=== PATIENT | male | born 1965 | race Caucasian/White ===

== ENCOUNTER 2018-02-12 07:31 | Inpatient (IN) | payer OTHER ==
--- NOTE | 2018-04-03 14:52 | HP ---
HISTORY OF PRESENT ILLNESS This is a 52 with HLD and HIV (on complare) see doctor Dr. Maki. Three months ago reports undetectable viral load. (Family is not aware of dx) next appt next month. 7 years ago pt lifted a 80lb box and injured his back. He underwent lumbar decompression back surgery at [facility]. His pain never improved since his surgery. He has tried PT and steroid injections, nerve stimulation without improvement. Pain mgmt doctor Dr. Matthew Nguyen He will undergo a posterior lumbar interbody fusion L1-S1 inspection fusion He has pain when he moves, ambulates. He ambulates with walker Has mild constipation due to narcotics PCP: Dr. Maki Recent travel: no Family History: Social History: disability[place] Smoking: no Alcohol: no Drugs: no REVIEW OF SYSTEMS CONSTITUTIONAL: Absent: fever, chills, diaphoresis, generalized weakness, malaise, loss of appetite, weight change HEENT: Absent: rhinorrhea, nasal congestion, throat pain, throat swelling, difficulty swallowing, mouth swelling, ear pain, eye pain, visual changes CARDIOVASCULAR: Absent: chest pain, syncope, palpitations, irregular heart rate, lightheadedness , peripheral edema RESPIRATORY: Absent: cough, shortness of breath, dyspnea with exertion, orthopnea, wheezing, stridor, hemoptysis GASTROINTESTINAL: Absent: abdominal pain, abdominal distension, nausea, vomiting, diarrhea, constipation, melena, hematochezia GENITOURINARY: Absent: dysuria, frequency, urgency, hesitancy, hematuria, flank pain, genital pain MUSCULOSKELETAL: back pain, Left leg pain > R Absent: myalgia, arthralgia, joint swelling, neck pain SKIN: Absent: rash, itching, pallor HEMATOLOGIC/IMMUNOLOGIC: Absent: easy bleeding, easy bruising, lymphadenopathy, frequent infections ENDOCRINE: Absent: unexplained weight gain, unexplained weight loss, heat intolerance, cold intolerance NEUROLOGIC: Absent: headache, focal weakness or paresthesias, dizziness, unsteady gait, seizure, mental status changes, bladder or bowel incontinence PSYCHIATRIC: Absent: anxiety, depression, suicidal or homicidal ideation, hallucinations. PHYSICAL EXAMINATION: GENERAL: Awake, alert, and fully oriented, in no acute distress. HEAD: Normal with no signs of trauma. EYES: Pupils equal, round and reactive to light, extraocular movements intact, sclera anicteric, conjunctiva clear. No lid lag. EARS, NOSE, THROAT: Ears normal, nares patent, oropharynx clear without exudates. Moist mucous membranes. NECK: Normal range of motion, supple without lymphadenopathy, JVD, or masses. LUNGS: Breath sounds equal, clear to auscultation bilaterally. No wheezes, and no crackles. No accessory muscle use. HEART: Regular rate and rhythm, normal S1 and S2 without murmur, rub or gallop. ABDOMEN: Soft, nontender, not distended, normoactive bowel sounds, no guarding, no rebound, no masses. No hepatomegaly or splenomegaly. MUSCULOSKELETAL: Normal range of motion at all joints. No bony deformities or tenderness. No CVA tenderness. UPPER EXTREMITIES: 2+ pulses, warm, well-perfused. No cyanosis. No clubbing. No peripheral edema. LOWER EXTREMITIES: 2+ pulses, warm, well-perfused. No calf tenderness. No peripheral edema. NEUROLOGICAL: Cranial nerves II-XII intact. Normal speech. Normal gait. PSYCHIATRIC: Cooperative. Good eye contact. Appropriate mood and affect. SKIN: Warm, dry, normal turgor, no rashes or lesions noted, normal capillary refill. ASSESSMENT/PLAN: 1. Chronic low back pain , spinal lumbar stenosis L1-S1 - For Posterior lumbar interbody fusion 04/09/18 - Cleared by pmh and gi MD - EKG no ischemia NSR - lab reviewed 2. HIV - See HPI - Cont current meds
[2018-04-09] MEDS ORDERED: fentaNYL CITRATE 250 MCG/5 ML VIAL ONE ×2 (13:39)
[2018-04-09] MEDS ORDERED: SUCCINYLCHOLINE CHLORIDE 200 MG/10 ML VIAL ONE (13:39)
[2018-04-09] MEDS ORDERED: MIDAZOLAM HCL 2 MG/2 ML SINGLE DOSE VIAL ONE ×3 (13:39)
[2018-04-09] MEDS ORDERED: PROPOFOL 20 ML ONE ×15 (13:39→18:27)
[2018-04-09] MEDS ORDERED: THROMBIN (BOVINE) 5,000 UNIT VIAL TP ONE (13:44)
[2018-04-09] MEDS ORDERED: BENZOIN/ALOE VERA/STORAX/TOLU 58 ML BOTTLE ONE (13:56)
[2018-04-09] MEDS ORDERED: HEPARIN NA (PORCINE) 5,000 UNITS/ML 1ML VIAL ONE (13:56)
[2018-04-09] MEDS ORDERED: ONDANSETRON 4 MG/2 ML VIAL ONE ×2 (14:27→19:10)
[2018-04-09] MEDS ORDERED: DEXAMETHASONE SOD PHOSPHATE 4 MG/1 ML VIAL ONE ×2 (14:27→19:10)
[2018-04-09] MEDS ORDERED: ceFAZolin SODIUM 1 GM VIAL ONE ×2 (14:28→17:50)
[2018-04-09] MEDS ORDERED: VANCOMYCIN 1,000 MG VIAL (RESTRICTED TO ID ONLY) ONE (14:28)
[2018-04-09] MEDS ORDERED: VANCOMYCIN 1,000 MG VIAL (RESTRICTED TO ID ONLY) IVPB ONE (14:30)
[2018-04-09] MEDS ORDERED: ceFAZolin SODIUM 1 GM VIAL IVPB ONE ×2 (15:36→17:52)
[2018-04-09] MEDS ORDERED: ROCURONIUM BROMIDE 50 MG/5 ML VIAL ONE (15:38)
[2018-04-09] MEDS ORDERED: ePHEDrine SULFATE 50 MG/1 ML AMPULE ONE (17:31)
--- NOTE | 2018-04-09 19:26 | PN ---
Progress Note (short form) - Note Progress Note: 52M s/p L2-L5 laminectomies, L4-L5 PLIF, L2-S1 PISF POD #0. -Pain control: per anaesthesia team. -DVT PPx: - Mechanical only: CHAZ's, SCD's. -Incentive spirometry. -PT/OT/Rehab, OOB. -WBAT B/L LE. -q4h B/L LE NV checks. -Post-op antibiotics x 2 doses. -NPO until flatus. -f/u AM labs. -d/c Castellanos catheter when ambulating. -Care per medical hospitalist team. -Discharge planning. -Will follow. Kem Feliz MD (Orthopaedic Surgery).
--- NOTE | 2018-04-09 19:26 | OP ---
Operative Note - Note: Operative Date: 04/09/18 Pre-Operative Diagnosis: Lumbar discogenic radiculopathy Operation: 1. L2-L5 laminectomies. 2. L2-L5 facetectomies. 3. L4-L5 PLIF. 4. L2-S1 PISF. 5. Stem cell harvest. 6. Bone autograft. 7. Bone allograft Post-Operative Diagnosis: Same as Pre-op Surgeon: Kem Feliz Pipe Line Inspector: Jalen Feliz Anesthesiologist/EQUINE INTERN: Lisa Conner Anesthesia: General Specimens Removed: L4-L5 disc Estimated Blood Loss (mls): 600 Drains & Tubes with Location: 1 x superficial HemoVac Blood Volume Replaced (mls): 250 (Cell Saver) Fluid Volume Replaced (mls): 2,000 (Crystalloid) Operative Report Dictated: Yes
[2018-04-09] MEDS ORDERED: ONDANSETRON 4 MG/2 ML VIAL IVPUSH PRN (19:29)
[2018-04-09] MEDS ORDERED: HYDROmorphone *PCA* 10MG/50ML DISP.SYRIN PCA ONE (19:41)
[2018-04-09] MEDS ORDERED: LACTATED RINGERS SOLUTION 1,000 ML IV SCH (19:45)
[2018-04-09] MEDS: HYDROmorphone *PCA* 10MG/50ML DISP.SYRIN PCA SCH (19:45)
[2018-04-09] MEDS ORDERED: ACETAMINOPHEN INJECTION 100 ML IVPB ONE (19:54)
[2018-04-09] MEDS: ACETAMINOPHEN 1000 MG/100 ML VIAL (NON FORMULARY) IVPB SCH (20:00)
[2018-04-09] MEDS ORDERED: LORazepam 2 MG/ML SDV VIAL IVPUSH ONE (20:41)
[2018-04-09] MEDS ORDERED: LORazepam 2 MG/ML SDV VIAL ONE (20:41)
[2018-04-09] MEDS ORDERED: HYDROmorphone HCL CARPU-JECT 2 MG/1 ML DISP.SYRIN IVPUSH ONE (20:42)
[2018-04-09] MEDS: LACTATED RINGERS SOLUTION 1,000 ML IV SCH (20:45)
--- NOTE | 2018-04-09 22:15 | CONSULT ---
Consultation: REQUESTING PROVIDER: CONSULT REQUEST: We have been asked to medically evaluate this patient for ( intensive care). HISTORY OF PRESENT ILLNESS: 52 y/o male with pmh of lumbar rediculopathy was admitted by spine surgeon for surgery. Isaiah states that 7 years ago he lifted a 80lb box and injured his back. He underwent lumbar decompression back surgery at [facility]. His pain never improved since his surgery. He has tried PT and steroid injections, nerve stimulation without improvement. Pain mgmt doctor Dr. Matthew Nguyen. He has pain when he moves, ambulates. He ambulates with walker. Has constipation due to narcotics. s/p L2-L5 laminectomies, L4-L5 PLIF, L2-S1 PISf complains of back pain radiating to left leg. on centerless grinder operator pump for pain control. on gabapentin for pain control PMH: HIV, hld REVIEW OF SYSTEMS: CONSTITUTIONAL: Absent: fever, chills, diaphoresis, generalized weakness, malaise, loss of appetite, weight change CARDIOVASCULAR: Absent: chest pain, syncope, palpitations, irregular heart rate, lightheadedness , peripheral edema RESPIRATORY: Absent: cough, shortness of breath, dyspnea with exertion, orthopnea, wheezing, stridor, hemoptysis GASTROINTESTINAL: Absent: abdominal pain, abdominal distension, nausea, vomiting, diarrhea, constipation, melena, hematochezia GENITOURINARY: Absent: dysuria, frequency, urgency, hesitancy, hematuria, flank pain, genital pain ENDOCRINE: Absent: unexplained weight gain, unexplained weight loss, heat in Absent: headache, focal weakness or paresthesias, PSYCHIATRIC: Absent: anxiety, depression, PHYSICAL EXAMINATION Vital Signs - 24 hr 04/09/18 04/09/18 04/09/18 10:23 19:30 19:45 Temperature 98.0 F 98.7 F Pulse Rate 73 103 H 104 H Respiratory 18 18 20 Rate Blood Pressure 138/84 98/59 131/79 O2 Sat by Pulse 96 95 Oximetry (%) 04/09/18 04/09/18 04/09/18 20:00 20:15 20:30 Temperature Pulse Rate 102 H 101 H 102 H Respiratory 20 18 22 Rate Blood Pressure 104/54 94/57 118/67 O2 Sat by Pulse 96 92 L 95 Oximetry (%) 04/09/18 04/09/18 20:45 20:59 Temperature Pulse Rate 102 H 103 H Respiratory 20 20 Rate Blood Pressure 118/67 137/82 O2 Sat by Pulse 92 L 97 Oximetry (%) GENERAL: Awake, alert, HEAD: Normal with no signs of trauma. EARS, NOSE, THROAT:. Moist mucous membranes. LUNGS: Breath sounds equal, clear to auscultation bilaterally. No wheezes, and no crackles. No accessory muscle use. HEART: s1s2 normal ABDOMEN: Soft, nontender, not distended, normoactive bowel sounds, no guarding, no rebound, no masses. MUSCULOSKELETAL: Normal range of motion at all joints. No bony deformities or tenderness. UPPER EXTREMITIES: 2+ pulses, warm, well-perfused. No cyanosis. LOWER EXTREMITIES: warm, well-perfused. No calf tenderness. SKIN: Warm, dry, Laboratory Results - last 24 hr 04/09/18 04/09/18 09:04 11:42 Blood Type A POSITIVE A POSITIVE Antibody Screen Negative Active Medications Generic Name Dose Route Start Last Admin Trade Name Freq PRN Reason Stop Dose Admin Acetaminophen 1,000 mg 04/09/18 19:45 04/09/18 20:00 Ofirmev Injection - IVPB 04/11/18 11:46 1,000 mg Q8H MARINO Administration Emtricitabine/Rilpivirine/Tenofovir 1 each 04/10/18 10:00 Complera - PO DAILY MARINO Fentanyl 50 mcg 04/09/18 19:43 04/09/18 20:20 Sublimaze Injection - IVPUSH 04/10/18 03:00 50 mcg [id number] PRN Administration PAIN-PACU ORDER X 4 DOSES ONLY Gabapentin 300 mg 04/09/18 22:00 Neurontin - PO QID MARINO Hydromorphone HCl 10 mg 04/09/18 20:00 04/09/18 19:45 Dilaudid Entry Level Paralegal - MANTEL CRAFTSMAN 04/16/18 19:59 10 mg MANTEL CRAFTSMAN MARINO Administration Protocol Hydromorphone HCl 2 mg 04/09/18 20:42 Dilaudid Injection - IVPUSH 04/09/18 20:43 ONCE ONE Lactated Ringer's 1,000 mls @ 75 mls/hr 04/09/18 20:00 Lactated Ringers Solution IV ASDIR MARINO Cefazolin Sodium/Dextrose 2 gm in 50 mls @ 100 mls/hr 04/10/18 00:30 Ancef 2 Gm Premixed Ivpb - IVPB 04/10/18 08:59 Q8H MARINO Ondansetron HCl 4 mg 04/09/18 19:29 Zofran Injection IVPUSH Q6H PRN NAUSEA AND/OR VOMITING ASSESSMENT/PLAN: Lumbar rediculopathy S/p L2-L5 laminectomies, L4-L5 PLIF, L2-S1 PISF POD #0. HLD HIV Plan -Pain control:on centerless grinder operator pump. -Incentive spirometry. -PT/OT/Rehab, OOB. -Post-op antibiotics as per surgeon. -NPO until flatus. -f/u AM labs. -d/c Castellanos catheter when ambulating. - continue home HIV meds. - LR @ 75ml/hr - monitor drain output. - zofran for nausea. - b/l scd for dvt prophylaxis. . Visit type - Emergency Visit Emergency Visit: Yes ED Registration Date: 04/09/18 Care time: The patient presented to the Emergency Department on the above date and was hospitalized for further evaluation of their emergent condition. - New Patient This patient is new to me today: Yes Date on this admission: 04/09/18 - Critical Care Critical Care patient: Yes Total Critical Care Time (in minutes): 45 Critical Care Statement: The care of this patient involved high complexity decision making to prevent further life threatening deterioration of the patient 's condition and/or to evaluate & treat vital organ system(s) failure or risk of failure.
[2018-04-09] MEDS: GABAPENTIN 300 MG CAPSULE (FP) PO SCH (23:10)
[2018-04-09] MEDS: CEFAZOLIN 2 GM/D5W 2 GM/50 ML ML IVPB SCH (23:51)
[2018-04-10] MEDS ORDERED: ceFAZolin 2 GRAM PREMIX BAG IVPB SCH (00:30)
[2018-04-10] MEDS ORDERED: HYDROmorphone *PCA* 10MG/50ML DISP.SYRIN PCA ONE ×2 (02:01→21:20)
[2018-04-10] MEDS: HYDROmorphone *PCA* 10MG/50ML DISP.SYRIN PCA SCH ×2 (02:03→21:25)
[2018-04-10] MEDS: ACETAMINOPHEN 1000 MG/100 ML VIAL (NON FORMULARY) IVPB SCH ×3 (05:00→22:16)
[2018-04-10] MEDS ORDERED: PNEUMOC 13-VAL CONJ-DIP CRM/PF 0.5 ML DISP.SYRIN IM ONE (06:12)
[2018-04-10 06:26] LABS: HEMATOCRIT 31.7 % (35.4-49); HEMOGLOBIN 10.8 GM/dL (11.7-16.9); MCH 31.7 pg (25.7-33.7); MCHC 34.1 g/dl (32.0-35.9); MEAN CELL VOLUME 92.8 fl (80-96); MEAN PLT VOLUME 8.5 fl (7.5-11.1); PLATELET COUNT 216 K/MM3 (134-434); RBC 3.42 M/mm3 (4.00-5.60); RDW 13.2 % (11.9-15.9)
[2018-04-10 06:47] LABS: ANION GAP 9 (8-16); BLOOD UREA NITROGEN 12 mg/dL (7-18); CALCIUM 8.3 mg/dL (8.5-10.1); CHLORIDE 104 mmol/L (98-107); CO2 26 mmol/L (21-32); GLUCOSE,RANDOM 125 mg/dL (74-106); POTASSIUM 4.4 mmol/L (3.5-5.1); SODIUM 139 mmol/L (136-145)
[2018-04-10 06:50] LABS: CREATININE 0.8 mg/dL (0.7-1.3)
[2018-04-10] MEDS ORDERED: LORazepam 2 MG/ML SDV VIAL IVPUSH PRN (08:00)
--- NOTE | 2018-04-10 08:06 | PN ---
Progress Note, Physician Chief Complaint: Pt still having pain and using TECHNICAL INTERNSHIP frequently. Stated that anxiolytic before surgery helped with his pain. No GA complaints. - Current Medication List Current Medications: Active Medications Acetaminophen (Ofirmev Injection -) 1,000 mg IVPB Q8H [facility] Stop: 04/11/18 11:46 Last Admin: 04/10/18 05:00 Dose: 1,000 mg Emtricitabine/Rilpivirine/Tenofovir (Complera -) 1 each PO DAILY [facility] Gabapentin (Neurontin -) 300 mg PO QID [facility] Last Admin: 04/09/18 23:10 Dose: 300 mg Hydromorphone HCl (Dilaudid Button Grader -) 10 mg TECHNICAL INTERNSHIP TECHNICAL INTERNSHIP [facility]; Protocol Stop: 04/16/18 19:59 Last Admin: 04/10/18 02:03 Dose: 10 mg Lactated Ringer's (Lactated Ringers Solution) 1,000 mls @ 75 mls/hr IV ASDIR [facility] Last Admin: 04/09/18 20:45 Dose: 100 mls Cefazolin Sodium/Dextrose (Ancef 2 Gm Premixed Ivpb -) 2 gm in 50 mls @ 100 mls /hr IVPB Q8H [facility] Stop: 04/10/18 08:59 Last Admin: 04/09/18 23:51 Dose: 100 mls/hr Ondansetron HCl (Zofran Injection) 4 mg IVPUSH Q6H PRN PRN Reason: NAUSEA AND/OR VOMITING Pneumococcal Polyvalent Vaccine (Pneumovax -) 0.5 ml IM .ONCE ONE Stop: 04/10/18 10:01 - Objective Vital Signs: Vital Signs Temperature 98.6 F 04/10/18 06:00 Pulse Rate 92 H 04/10/18 07:57 Respiratory Rate 16 04/10/18 07:57 Blood Pressure 110/68 04/10/18 07:57 O2 Sat by Pulse Oximetry (%) 98 04/09/18 21:45 Constitutional: Yes: Well Nourished, No Distress, Calm Neurological: Yes: WNL, Alert, Oriented Labs: CBC, BMP 04/10/18 05:30 04/10/18 05:30 Assessment/Plan POD#1 s/p L2-S1 Laminectomy with fusion under GA with TECHNICAL INTERNSHIP. Pain to be controlled better Continue TECHNICAL INTERNSHIP, start Ativan prn to help with anxiety/pain.
[2018-04-10] MEDS: CEFAZOLIN 2 GM/D5W 2 GM/50 ML ML IVPB SCH (08:39)
--- NOTE | 2018-04-10 09:02 | OP ---
DATE OF OPERATION: 04/09/2018 SURGEON: Kem Feliz MD PHARMACY TECHNOLOGY INSTRUCTOR: Jalen Feliz MD PREOPERATIVE DIAGNOSIS: Axial skeletal back pain due to discogenic L2-L3 and L4 -L5 disc degeneration with associated segment instability and kyphosis and pseudoarthrosis. POSTOPERATIVE DIAGNOSIS: Axial skeletal back pain due to discogenic L2-L3 and L4-L5 disc degeneration with associated segment instability and kyphosis and pseudoarthrosis. OPERATION PERFORMED: 1. Laminectomy L2-S1. 2. Posterior lumbar interbody fusion L4-L5 with TETRAfuse cage. 3. Removal of hardware L5-S1 and inspection of fusion mass. This revealed a pseudoarthrosis. 4. Pedicle screw instrumentation L2-S1. 5. Posterolateral arthrodesis L2-S1. 6. Complex wound closure from 25 cm. ANESTHESIA: General. ANTIBIOTICS GIVEN: Kefzol 2 g, 1 g vancomycin preoperatively; 1 g Kefzol given intraoperatively. Copious washout throughout the procedure. The wounds were opened and closed within 4 hours. BLOOD LOSS: Approximately 700 mL; 350 mL of CellSaver given back to the patient. INDICATIONS: Patient is a Worker's Compensation case and has been treated by myself for almost 4 years. Underwent surgery in the past at L4-L5-S1 fusion. Patient deteriorated significantly following this with resultant left-sided L5-S1 radiculopathy, segmental instability, and kyphosis. PROCEDURE: Timeout was called. Skin was prepped with betadine scrub solution, wiped with alcohol, and DuraPrep applied. Neural monitoring was utilized. Bone marrow aspirate concentrate from the left posterior ileum was utilized. Midline incision opening the old wound and extending proximally and distally. Subperiosteal dissection was performed from the tip of the spinous process of L1 longitudinally to the tip of the spinous process of S2. The subperiosteal dissection performed, extensively packing the intertransverse plane with sponges. The hardware was dissected out. This was all the old previous instrumentation removed without any difficulty. The original fusion site inspected and there is a suspicious degree of micromotion noted as a pseudoarthrosis. The pedicle screws were removed. The laminectomy was a central laminectomy from L2 down to L5 performed. Following this, using osteotomes to plug the bone towards the vertebral canal, displacing the pars interarticularis and the inferior facet of each joint from L2 right down to L5 was performed on the left and right hand sides. Bone was then removed, exposing the superior facet and underlying thickened capsular structures. These were all then readily visualized and appropriately removed, thus completing a wide decompression and undercutting facetectomy. The disc from the left hand side of L4-L5 was identified. Massive epidural veins were diathermized with bipolar Bovie. An 11 -blade was used to perform an annulotomy. This was a britt-annulotomy from the left hand side. Deloris were sequentially seated up to a size 12 and shaving produced degenerative disc material. The shaver was then able to completely free all disc material, which was then retrieved using pituitary rongeurs. A serrated curette was used to palpate and remove any other soft tissue elements from the superior and inferior aspects of this appropriate interbody endplate level. The interbody space was verified with fluoroscopic x-ray. This was strongly provocatively positive disc noted and this was packed with autologous bone followed by TETRAfuse size 13 x 22 mm and 5-degree lordosis. This was packed with autologous bone graft and seated solidly into position. Verification of the cage on x-ray revealed excellent position and opening into disc space. We looked at the L2-L3 disc, but this was unsafe to perform an interbody fusion. I elected not to use a transforaminal lumbar interbody cage as the disc height was well maintained and I felt this was a simple instrumented fusion across the well-maintained disc height would suffice. If anything needs to be done in the future, I would elect to do an XLIF at L2-L3. Once this had been performed, all of the pedicle screws, which measures 7 x 14 mm were seated into the interbodies. Each screw was tested with intraoperative neural monitoring and found to well within the safe parameters except the right S1 screw, which measured 8 milliamps. The reason for this was unclear as all of the pain was on the left hand side and all we did was place a new screw except a slightly thicker screw for better bony purchase into the S1 vertebral canal and this was never a problem preoperatively. It was elected to leave this alone. The rods were contoured onto the screw heads, locked into position with the appropriate tightening device, and torqued with the torque device to finalize fixation. One cross clamp was applied. The intertransverse plane was packed with bone graft from L2-S1 right down to the sacrum and this consisted of strips of allograft and autograft, mixed with C34 bone marrow cells harvested from the left posterior ileum by Jamshidi needle; 130 mL of marrow was aspirated and spun down to the appropriate bone marrow aspirate concentrate for the bone grafting. No complications. The dura was washed and thoroughly lavaged and was noted to be completely intact. Complete decompression achieved. All foramina were wide open. Sponge count was correct. The tissues were closed as follows as a complex wound closure: Muscles with 1 Vicryl, fascia with 1 Vicryl, subcutaneous tissue 1 Vicryl, and skin with allyson. Drainage: One-eighth inch Hemovac subcutaneously x1. OVERALL COMMENT: Operation went well. No complications. MD ANUEL Person/[id number] MTDD
[2018-04-10] MEDS ORDERED: PT OWN MED DRAWER 7, Y5N ONE (09:14)
[2018-04-10] MEDS: EMTRICITAB/RILPIVIRINE/TENOFOV 1 EACH TABLET PO SCH (09:15)
[2018-04-10] MEDS: GABAPENTIN 300 MG CAPSULE (FP) PO SCH ×4 (09:15→22:17)
[2018-04-10] MEDS ORDERED: PNEUMOCOCCAL 23 VACCINE 0.5 ML VIAL IM ONE (10:00)
[2018-04-10] MEDS ORDERED: diazePAM 5 MG TABLET PO PRN (12:26)
[2018-04-10] MEDS: LACTATED RINGERS SOLUTION 1,000 ML IV SCH (12:51)
--- NOTE | 2018-04-10 13:08 | PN ---
Teaching Attending Note Name of Resident: Justice Yates ATTENDING PHYSICIAN STATEMENT I saw and evaluated the patient. I reviewed the resident's note and discussed the case with the resident. I agree with the resident's findings and plan as documented. SUBJECTIVE: Patient seen and examined in the ICU. Awake and alert. POD#1: L2-L5 laminectomies; L2-L5 facetectomies; L4-L5 PLIF; L2-S1 PISF; Stem cell harvest; Bone autograft; Bone allograft Reports frequent break through musculoskeletal pain. No CP or SOB. Intake & Output 04/07/18 04/08/18 04/09/18 04/10/18 23:59 23:59 23:59 23:59 Intake Total 2350 814 Output Total 1300 870 Balance 1050 -56 Weight 211 lb 208 lb Last Vital Signs Temp Pulse Resp BP Pulse Ox 98.6 F 88 16 105/77 98 04/10/18 09:54 04/10/18 11:00 04/10/18 11:00 04/10/18 11:00 04/09/18 21:45 Active Medications Acetaminophen (Ofirmev Injection -) 1,000 mg IVPB Q8H [facility] Stop: 04/11/18 11:46 Last Admin: 04/10/18 12:55 Dose: 1,000 mg Diazepam (Valium -) 10 mg PO Q12H PRN PRN Reason: PAIN LEVEL 6-10 Stop: 04/13/18 12:26 Emtricitabine/Rilpivirine/Tenofovir (Complera -) 1 each PO DAILY [facility] Last Admin: 04/10/18 09:15 Dose: 1 each Gabapentin (Neurontin -) 300 mg PO QID [facility] Last Admin: 04/10/18 09:15 Dose: 300 mg Hydromorphone HCl (Dilaudid Revenue Enforcement Agent -) 10 mg TREND INVESTIGATOR TREND INVESTIGATOR [facility]; Protocol Stop: 04/16/18 19:59 Last Admin: 04/10/18 02:03 Dose: 10 mg Lactated Ringer's (Lactated Ringers Solution) 1,000 mls @ 75 mls/hr IV ASDIR [facility] Last Admin: 04/10/18 12:51 Dose: 75 mls/hr Ondansetron HCl (Zofran Injection) 4 mg IVPUSH Q6H PRN PRN Reason: NAUSEA AND/OR VOMITING GENERAL: Awake, alert, mildly uncomfortable due to pain HEAD: Normal with no signs of trauma. EARS, NOSE, THROAT:. Moist mucous membranes. LUNGS: Breath sounds equal, clear to auscultation bilaterally. No wheezes, and no crackles. No accessory muscle use. HEART: S1S2, regular ABDOMEN: Soft, nontender, not distended, normoactive bowel sounds, no guarding, no rebound, no masses. MUSCULOSKELETAL: Normal range of motion at all joints. No bony deformities or tenderness. UPPER EXTREMITIES: 2+ pulses, warm, well-perfused. No cyanosis. LOWER EXTREMITIES: warm, well-perfused. No calf tenderness. SKIN: Warm, dry, Laboratory Results - last 24 hr 04/10/18 04/10/18 05:30 05:30 WBC 15.0 H RBC 3.42 L Hgb 10.8 L Hct 31.7 L MCV 92.8 MCH 31.7 MCHC 34.1 RDW 13.2 Plt Count 216 MPV 8.5 Sodium 139 Potassium 4.4 Chloride 104 Carbon Dioxide 26 Anion Gap 9 BUN 12 Creatinine 0.8 Creat Clearance w eGFR > 60 Random Glucose 125 H Calcium 8.3 L ASSESSMENT/PLAN: POD#1: L2-L5 laminectomies; L2-L5 facetectomies; L4-L5 PLIF; L2-S1 PISF; Stem cell harvest; Bone autograft; Bone allograft Lumbar rediculopathy HPL HIV Plan Pain control O2 as needed VTE prophylaxis Incentive spirometry. PT/OT/Rehab OOB Post-op antibiotics as per surgeon. NPO until flatus. D/C Castellanos catheter when ambulating. LR @ 75ml/hr Strict I & O Zofran for nausea. Dr Lawton Critical care time spent in reviewing chart, evaluating patient and formulating plan - 36 minutes.
--- NOTE | 2018-04-10 14:04 | PN ---
Physical Exam: SUBJECTIVE: Patient seen and examined today in icu. POD #1 s/p posterior lumbar interbody fusion L1-S1 inspection fusion. Castellanos removed, pt is ambulating and receiving physical therapy. Continues to have moderate back pain. OBJECTIVE: Vital Signs Temperature 98.6 F 04/10/18 09:54 Pulse Rate 88 04/10/18 11:00 Respiratory Rate 16 04/10/18 11:00 Blood Pressure 105/77 04/10/18 11:00 O2 Sat by Pulse Oximetry (%) 98 04/09/18 21:45 GENERAL: The patient is awake, alert, and fully oriented, in no acute distress. HEAD: Normal with no signs of trauma. EYES: PERRL, extraocular movements intact, sclera anicteric, conjunctiva clear. No ptosis. ENT: Ears normal, nares patent, oropharynx clear without exudates, moist mucous membranes. NECK: Trachea midline, full range of motion, supple. LUNGS: Breath sounds equal, clear to auscultation bilaterally, no wheezes, no crackles, no accessory muscle use. HEART: Regular rate and rhythm, S1, S2 without murmur, rub or gallop. ABDOMEN: Soft, nontender, nondistended, normoactive bowel sounds, no guarding, no rebound, no hepatosplenomegaly, no masses. EXTREMITIES: 2+ pulses, warm, well-perfused, no edema. NEUROLOGICAL: Cranial nerves II through XII grossly intact. Normal speech, gait not observed. PSYCH: Normal mood, normal affect. SKIN: Warm, dry, normal turgor, no rashes or lesions noted Laboratory Results - last 24 hr 04/10/18 04/10/18 05:30 05:30 WBC 15.0 H RBC 3.42 L Hgb 10.8 L Hct 31.7 L MCV 92.8 MCH 31.7 MCHC 34.1 RDW 13.2 Plt Count 216 MPV 8.5 Sodium 139 Potassium 4.4 Chloride 104 Carbon Dioxide 26 Anion Gap 9 BUN 12 Creatinine 0.8 Creat Clearance w eGFR > 60 Random Glucose 125 H Calcium 8.3 L Active Medications Generic Name Dose Route Start Last Admin Trade Name Freq PRN Reason Stop Dose Admin Acetaminophen 1,000 mg 04/09/18 19:45 04/10/18 12:55 Ofirmev Injection - IVPB 04/11/18 11:46 1,000 mg Q8H MARINO Administration Diazepam 10 mg 04/10/18 12:26 Valium - PO 04/13/18 12:26 Q12H PRN PAIN LEVEL 6-10 Emtricitabine/Rilpivirine/Tenofovir 1 each 04/10/18 10:00 04/10/18 09:15 Complera - PO 1 each DAILY MARINO Administration Gabapentin 300 mg 04/09/18 22:00 04/10/18 09:15 Neurontin - PO 300 mg QID MARINO Administration Hydromorphone HCl 10 mg 04/09/18 20:00 04/10/18 02:03 Dilaudid Rug Sample Beveler - LINKER UP 04/16/18 19:59 10 mg LINKER UP MARINO Administration Protocol Lactated Ringer's 1,000 mls @ 75 mls/hr 04/09/18 20:00 04/10/18 12:51 Lactated Ringers Solution IV 75 mls/hr ASDIR MARINO Administration Ondansetron HCl 4 mg 04/09/18 19:29 Zofran Injection IVPUSH Q6H PRN NAUSEA AND/OR VOMITING ASSESSMENT/PLAN: 1. Lumbar Radiculopathy s/p L2-L5 laminectomies, L4-L5 PLIF, L2-S1 PISF For pain: Valium 10 mg po q12H Gabapentin 300 mg po qid Ofirimiev injection 1000 mg IVPB Q8H Hydromorphone hcl 10 mg manager flight operations Incentive Spirometry Physical Therapy to aid with ambulation 2. HIV c/w HIV meds Complera (Emtricitabine, rilpivirine, tenofovir) FEN Fluids - NS @ 42 ml/hr Electrolytes -Monitor electrolytes Nutrition-Soft diet DVT Thromboembolic deterrent stockings Dispo Monitor in ICU Visit type - Emergency Visit Emergency Visit: No - New Patient This patient is new to me today: Yes Date on this admission: 04/10/18 - Critical Care Critical Care patient: Yes Total Critical Care Time (in minutes): 35 Critical Care Statement: The care of this patient involved high complexity decision making to prevent further life threatening deterioration of the patient 's condition and/or to evaluate & treat vital organ system(s) failure or risk of failure.
--- NOTE | 2018-04-10 17:34 | PN ---
Progress Note (short form) - Note Progress Note: Subjective: The patient was seen and examined at the bedside, he reports some pain in his back. He is pressing his INDOOR PLANT TECHNICIAN and states he has relief when pressing it. Current Medications Generic Name Dose Route Start Last Admin Trade Name Freq PRN Reason Stop Dose Admin Acetaminophen 1,000 mg 04/09/18 19:45 04/10/18 12:55 Ofirmev Injection - IVPB 04/11/18 11:46 1,000 mg Q8H MARINO Administration Diazepam 10 mg 04/10/18 12:26 Valium - PO 04/13/18 12:26 Q12H PRN PAIN LEVEL 6-10 Emtricitabine/Rilpivirine/Tenofovir 1 each 04/10/18 10:00 04/10/18 09:15 Complera - PO 1 each DAILY MARINO Administration Gabapentin 300 mg 04/09/18 22:00 04/10/18 14:08 Neurontin - PO 300 mg QID MARINO Administration Hydromorphone HCl 10 mg 04/09/18 20:00 04/10/18 02:03 Dilaudid Content Developer - INDOOR PLANT TECHNICIAN 04/16/18 19:59 10 mg INDOOR PLANT TECHNICIAN MARINO Administration Protocol Lactated Ringer's 1,000 mls @ 75 mls/hr 04/09/18 20:00 04/10/18 12:51 Lactated Ringers Solution IV 75 mls/hr ASDIR MARINO Administration Sodium Chloride 1,000 mls @ 42 mls/hr 04/10/18 15:45 Normal Saline - IV ASDIR MARINO Ondansetron HCl 4 mg 04/09/18 19:29 Zofran Injection IVPUSH Q6H PRN NAUSEA AND/OR VOMITING Objective: Vital Signs Period Temp Pulse Resp BP Sys/Encinas Pulse Ox Last 24 Hr 98 F-98.7 F 85-117 12-22 94-139/51-94 92-99 Physical Exam: General: NAD, A&Ox3 Lungs: CTA bilaterally Heart: RRR, S1S2 Abd: Soft, non-tender, non-distended Skin: Back dressing, c/d/i Neuro: No focal deficits CBCD WBC 15.0 K/mm3 (4.0-10.0) H 04/10/18 05:30 RBC 3.42 M/mm3 (4.00-5.60) L 04/10/18 05:30 Hgb 10.8 GM/dL (11.7-16.9) L 04/10/18 05:30 Hct 31.7 % (35.4-49) L 04/10/18 05:30 MCV 92.8 fl (80-96) 04/10/18 05:30 MCHC 34.1 g/dl (32.0-35.9) 04/10/18 05:30 RDW 13.2 % (11.9-15.9) 04/10/18 05:30 Plt Count 216 K/MM3 (134-434) 04/10/18 05:30 MPV 8.5 fl (7.5-11.1) 04/10/18 05:30 CMP Sodium 139 mmol/L (136-145) 04/10/18 05:30 Potassium 4.4 mmol/L (3.5-5.1) 04/10/18 05:30 Chloride 104 mmol/L (98-107) 04/10/18 05:30 Carbon Dioxide 26 mmol/L (21-32) 04/10/18 05:30 Anion Gap 9 (8-16) 04/10/18 05:30 BUN 12 mg/dL (7-18) 04/10/18 05:30 Creatinine 0.8 mg/dL (0.7-1.3) 04/10/18 05:30 Creat Clearance w eGFR > 60 (>60) 04/10/18 05:30 Random Glucose 125 mg/dL (74-106) H 04/10/18 05:30 Calcium 8.3 mg/dL (8.5-10.1) L 04/10/18 05:30 Assessment: This is a 52 year old male with PMHx of HIV, hyperlipidemia who is s /p surgery for lumbar discogenic radiculopathy on 04/09/18 Plan: 1) Lumbar discogenic radiculopathy - S/p L2-L5 laminectomies, L2-L5 facetectomies, L4-L5 PLIF, L2-S1 PISF, Stem cell harvest, Bone autograft, Bone allograft, NGUYEN L5-S1, inspection of fusion mass - Continue INDOOR PLANT TECHNICIAN - Acetaminophen IVPB - Castellanos catheter removed today - Incentive spirometer - WBAT - Appreciate surgery consult 2) HIV - Continue Complera 3) F/E/N: - Soft diet - Monitor electrolytes 4) Prophylaxis: - Mechanical DVT prophylaxis only per surgery - PT 5) Dispo: - Requires continued inpatient care CODE STATUS: FULL CODE Visit type - Emergency Visit Emergency Visit: Yes ED Registration Date: 04/09/18 Care time: The patient presented to the Emergency Department on the above date and was hospitalized for further evaluation of their emergent condition. - New Patient This patient is new to me today: Yes Date on this admission: 04/10/18 - Critical Care Critical Care patient: No
[2018-04-10] MEDS: SODIUM CHLORIDE 1,000 ML IV SCH (17:43)
--- NOTE | 2018-04-10 19:36 | PN ---
Progress Note (short form) - Note Progress Note: POD#1 C/O incisional pain no leg pain Vitals all stable as per chart. CVS Stable RSP Clear ABD Distended soft No B/S as yet. Wound Bandage minimal drainage Drain in situ Neuro Fully in tact ASSESS Doing well PLAN D/C hemovac when drainage is less than 50 Pain Mx PT Mobile as tolerated Continue all meds Transfer to [facility] tomorrow Diet light soft
[2018-04-11] MEDS: ACETAMINOPHEN 1000 MG/100 ML VIAL (NON FORMULARY) IVPB SCH ×2 (05:43→14:12)
[2018-04-11] MEDS ORDERED: HYDROmorphone *PCA* 10MG/50ML DISP.SYRIN PCA ONE (05:54)
[2018-04-11] MEDS: HYDROmorphone *PCA* 10MG/50ML DISP.SYRIN PCA SCH ×4 (05:55→21:32)
[2018-04-11 06:09] LABS: BASO % 0.3 % (0-2.0); EOS % 1.3 % (0-4.5); HEMATOCRIT 30.2 % (35.4-49); HEMOGLOBIN 10.3 GM/dL (11.7-16.9); MCHC 34.2 g/dl (32.0-35.9); MEAN CELL VOLUME 93.3 fl (80-96); MEAN PLT VOLUME 8.1 fl (7.5-11.1); MONO % 7.7 % (3.8-10.2); NEUT % 64.7 % (42.8-82.8); PLATELET COUNT 191 K/MM3 (134-434); RBC 3.23 M/mm3 (4.00-5.60); RDW 13.7 % (11.9-15.9)
[2018-04-11 06:44] LABS: ALBUMIN 3.4 g/dl (3.4-5.0); ANION GAP 7 (8-16); BLOOD UREA NITROGEN 12 mg/dL (7-18); CALCIUM 7.8 mg/dL (8.5-10.1); CHLORIDE 102 mmol/L (98-107); CO2 32 mmol/L (21-32); GLUCOSE,RANDOM 112 mg/dL (74-106); PHOSPHOROUS 2.1 mg/dL (2.5-4.9); POTASSIUM 3.7 mmol/L (3.5-5.1); SGOT/AST 111 U/L (15-37); SODIUM 141 mmol/L (136-145)
[2018-04-11 06:46] LABS: ALK PHOS 52 U/L (45-117); BILIRUBIN,TOTAL 0.4 mg/dL (0.2-1.0); CREATININE 0.8 mg/dL (0.7-1.3); SGPT/ALT 73 U/L (12-78); TOT PROT 6.2 g/dl (6.4-8.2)
[2018-04-11] MEDS ORDERED: PT OWN MED DRAWER 7, Y5N ONE (08:36)
[2018-04-11] MEDS: EMTRICITAB/RILPIVIRINE/TENOFOV 1 EACH TABLET PO SCH ×2 (08:46→11:58)
[2018-04-11] MEDS: GABAPENTIN 300 MG CAPSULE (FP) PO SCH ×4 (09:22→21:31)
--- NOTE | 2018-04-11 09:27 | PN ---
Progress Note, Physician Chief Complaint: Pt. still has pain that is controlled with Dilaudid CLIENT SERVICES ASSOCIATE and Valium. No complications - Current Medication List Current Medications: Active Medications Acetaminophen (Ofirmev Injection -) 1,000 mg IVPB Q8H [facility] Stop: 04/11/18 14:01 Last Admin: 04/11/18 05:43 Dose: 1,000 mg Diazepam (Valium -) 10 mg PO Q12H PRN PRN Reason: PAIN LEVEL 6-10 Stop: 04/13/18 12:26 Last Admin: 04/10/18 17:39 Dose: 10 mg Emtricitabine/Rilpivirine/Tenofovir (Complera -) 1 each PO DAILY [facility] Last Admin: 04/11/18 08:46 Dose: 1 each Gabapentin (Neurontin -) 300 mg PO QID [facility] Last Admin: 04/11/18 09:22 Dose: 300 mg Hydromorphone HCl (Dilaudid Senior Engineering Associate -) 10 mg CLIENT SERVICES ASSOCIATE CLIENT SERVICES ASSOCIATE [facility]; Protocol Stop: 04/16/18 19:59 Last Admin: 04/11/18 05:55 Dose: 10 mg Sodium Chloride (Normal Saline -) 1,000 mls @ 42 mls/hr IV ASDIR [facility] Last Admin: 04/10/18 17:43 Dose: 42 mls/hr Ondansetron HCl (Zofran Injection) 4 mg IVPUSH Q6H PRN PRN Reason: NAUSEA AND/OR VOMITING - Objective Vital Signs: Vital Signs Temperature 98.2 F 04/11/18 06:00 Pulse Rate 100 H 04/11/18 08:00 Respiratory Rate 18 04/11/18 08:00 Blood Pressure 107/52 04/11/18 08:00 O2 Sat by Pulse Oximetry (%) 100 04/10/18 20:16 Constitutional: Yes: Well Nourished, No Distress, Calm Musculoskeletal: Yes: Back Pain Neurological: Yes: WNL, Alert, Oriented Labs: CBC, BMP 04/11/18 05:30 04/11/18 05:30 Assessment/Plan POD#1 s/p L2-S1 Laminectomy with fusion under GA with CLIENT SERVICES ASSOCIATE for pain control. Better with valium. Cont. CLIENT SERVICES ASSOCIATE
[2018-04-11] MEDS ORDERED: diazePAM 5 MG TABLET PO ONE (11:13)
--- NOTE | 2018-04-11 11:13 | PN ---
Physical Exam: SUBJECTIVE: Patient seen and examined at bedside. No overnight events. No new complaints. POD#1 s/p laminectomy doing well. Pain controlled. Denies CP,OSPINA, SOB , abdominal pain, nausea or vomiting. OBJECTIVE: Vital Signs Period Temp Pulse Resp BP Sys/Encinas Pulse Ox Last 24 Hr 98 F-98.8 F 86-112 16-22 107-135/52-86 100 GENERAL: Awake, alert, NAD EARS, NOSE, THROAT:. Moist mucous membranes. LUNGS: CTAB, no wheezing or rales. HEART:RRR, NL S1S2, No M/G/R ABDOMEN: soft, NT,ND, NABS MUSCULOSKELETAL: Normal range of motion at all joints. No bony deformities or tenderness. UPPER EXTREMITIES: 2+ pulses, warm, well-perfused. No cyanosis. LOWER EXTREMITIES: warm, well-perfused. No calf tenderness. no edema SKIN: surgical dressing appears C/D/I Laboratory Results - last 24 hr 04/11/18 04/11/18 05:30 05:30 WBC 12.0 H RBC 3.23 L Hgb 10.3 L Hct 30.2 L MCV 93.3 MCH 32.0 MCHC 34.2 RDW 13.7 Plt Count 191 MPV 8.1 Absolute Neuts (auto) 7.8 Neutrophils % 64.7 Lymphocytes % 26.0 Monocytes % 7.7 Eosinophils % 1.3 Basophils % 0.3 Nucleated RBC % 0 Sodium 141 Potassium 3.7 Chloride 102 Carbon Dioxide 32 D Anion Gap 7 L BUN 12 Creatinine 0.8 Creat Clearance w eGFR > 60 Random Glucose 112 H Calcium 7.8 L Phosphorus 2.1 L Magnesium 2.0 Total Bilirubin 0.4 AST 111 H ALT 73 Alkaline Phosphatase 52 Total Protein 6.2 L Albumin 3.4 Active Medications Generic Name Dose Route Start Last Admin Trade Name Freq PRN Reason Stop Dose Admin Acetaminophen 1,000 mg 04/11/18 06:00 04/11/18 05:43 Ofirmev Injection - IVPB 04/11/18 14:01 1,000 mg Q8H MARINO Administration Emtricitabine/Rilpivirine/Tenofovir 1 each 04/10/18 10:00 04/11/18 08:46 Complera - PO 1 each DAILY MARINO Administration Gabapentin 300 mg 04/09/18 22:00 04/11/18 09:22 Neurontin - PO 300 mg QID MARINO Administration Hydromorphone HCl 10 mg 04/09/18 20:00 04/11/18 05:55 Dilaudid Real Estate Professional - WELFARE SUPERVISOR 04/16/18 19:59 10 mg WELFARE SUPERVISOR MARINO Administration Protocol Sodium Chloride 1,000 mls @ 42 mls/hr 04/10/18 15:45 04/10/18 17:43 Normal Saline - IV 42 mls/hr ASDIR MARINO Administration Lorazepam 1 mg 04/11/18 10:53 Ativan - PO BID PRN Anxiety or Spasms Ondansetron HCl 4 mg 04/09/18 19:29 Zofran Injection IVPUSH Q6H PRN NAUSEA AND/OR VOMITING Oxycodone HCl 5 mg 04/11/18 10:53 Roxicodone - PO Q6H PRN PAIN LEVEL 6-10 ASSESSMENT/PLAN: 52 yo M with pmhx of HIV and HLD POD#1 s/p L2-L5 laminectomies, L4-L5 PLIF, L2- S1 PISF Neuro: * Awake and alert. * moving all 4 ext. * Sensation intact * pain control with WELFARE SUPERVISOR * surgery to remove hemovac. CV: * BP well controlled * continue to monitor Pulm : * No active issues. * encourage incentive spirometry. * supplemental o2 prn maintain SpO2 >90% ID: * h/o HIV * continue HAART FEN: * NS @ 42ml/hr * repeat BMP in AM * soft diet. Dispo: once hemovac removed can be transfered to med/surg. Visit type - Emergency Visit Emergency Visit: Yes ED Registration Date: 04/09/18 Care time: The patient presented to the Emergency Department on the above date and was hospitalized for further evaluation of their emergent condition. - New Patient This patient is new to me today: Yes Date on this admission: 04/11/18 - Critical Care Critical Care patient: Yes Total Critical Care Time (in minutes): 45 Critical Care Statement: The care of this patient involved high complexity decision making to prevent further life threatening deterioration of the patient 's condition and/or to evaluate & treat vital organ system(s) failure or risk of failure.
[2018-04-11] MEDS: oxyCODONE HCL 5 MG TABLET PO PRN ×2 (11:15→21:31)
--- NOTE | 2018-04-11 11:24 | PN ---
Teaching Attending Note Name of Resident: Luis Dockery ATTENDING PHYSICIAN STATEMENT I saw and evaluated the patient. I reviewed the resident's note and discussed the case with the resident. I agree with the resident's findings and plan as documented. SUBJECTIVE: Patient seen and examined in the ICU. Awake and alert. POD#2: L2-L5 laminectomies; L2-L5 facetectomies; L4-L5 PLIF; L2-S1 PISF; Stem cell harvest; Bone autograft; Bone allograft Intermittent break through musculoskeletal pain. No CP or SOB. Intake & Output 04/08/18 04/09/18 04/10/18 04/11/18 23:59 23:59 23:59 23:59 Intake Total 2350 1764 904 Output Total 1300 3320 2170 Balance 1050 -1556 -1266 Weight 211 lb 208 lb 207 lb Last Vital Signs Temp Pulse Resp BP Pulse Ox 98.4 F 94 H 18 122/78 100 04/11/18 10:00 04/11/18 10:00 04/11/18 10:00 04/11/18 10:00 04/10/18 20:16 Active Medications Acetaminophen (Ofirmev Injection -) 1,000 mg IVPB Q8H MARINO Stop: 04/11/18 14:01 Last Admin: 04/11/18 05:43 Dose: 1,000 mg Diazepam (Valium -) 10 mg PO ONCE ONE Stop: 04/11/18 11:14 Emtricitabine/Rilpivirine/Tenofovir (Complera -) 1 each PO DAILY MARINO Last Admin: 04/11/18 08:46 Dose: 1 each Gabapentin (Neurontin -) 300 mg PO QID MARINO Last Admin: 04/11/18 09:22 Dose: 300 mg Hydromorphone HCl (Dilaudid Entry Engineer -) 10 mg BIT SHARPENER OPERATOR BIT SHARPENER OPERATOR MARINO; Protocol Stop: 04/16/18 19:59 Last Admin: 04/11/18 05:55 Dose: 10 mg Sodium Chloride (Normal Saline -) 1,000 mls @ 42 mls/hr IV ASDIR MARINO Last Admin: 04/10/18 17:43 Dose: 42 mls/hr Lorazepam (Ativan -) 1 mg PO BID PRN PRN Reason: Anxiety or Spasms Ondansetron HCl (Zofran Injection) 4 mg IVPUSH Q6H PRN PRN Reason: NAUSEA AND/OR VOMITING Oxycodone HCl (Roxicodone -) 5 mg PO Q6H PRN PRN Reason: PAIN LEVEL 6-10 Last Admin: 04/11/18 11:15 Dose: 5 mg GENERAL: Awake, alert, mildly uncomfortable due to pain HEAD: Normal with no signs of trauma. EARS, NOSE, THROAT:. Moist mucous membranes. LUNGS: Breath sounds equal, clear to auscultation bilaterally. No wheezes, and no crackles. No accessory muscle use. HEART: S1S2, regular ABDOMEN: Soft, nontender, not distended, normoactive bowel sounds, no guarding, no rebound, no masses. MUSCULOSKELETAL: Normal range of motion at all joints. No bony deformities or tenderness. UPPER EXTREMITIES: 2+ pulses, warm, well-perfused. No cyanosis. LOWER EXTREMITIES: warm, well-perfused. No calf tenderness. SKIN: Warm, dry, Laboratory Results - last 24 hr 04/11/18 04/11/18 05:30 05:30 WBC 12.0 H RBC 3.23 L Hgb 10.3 L Hct 30.2 L MCV 93.3 MCH 32.0 MCHC 34.2 RDW 13.7 Plt Count 191 MPV 8.1 Absolute Neuts (auto) 7.8 Neutrophils % 64.7 Lymphocytes % 26.0 Monocytes % 7.7 Eosinophils % 1.3 Basophils % 0.3 Nucleated RBC % 0 Sodium 141 Potassium 3.7 Chloride 102 Carbon Dioxide 32 D Anion Gap 7 L BUN 12 Creatinine 0.8 Creat Clearance w eGFR > 60 Random Glucose 112 H Calcium 7.8 L Phosphorus 2.1 L Magnesium 2.0 Total Bilirubin 0.4 AST 111 H ALT 73 Alkaline Phosphatase 52 Total Protein 6.2 L Albumin 3.4 ASSESSMENT/PLAN: POD#2: L2-L5 laminectomies; L2-L5 facetectomies; L4-L5 PLIF; L2-S1 PISF; Stem cell harvest; Bone autograft; Bone allograft Lumbar rediculopathy HPL HIV Plan: Pain control O2 as needed VTE prophylaxis Incentive spirometry. PT/OT/Rehab OOB PO as tolerated LR @ 75ml/hr Strict I & O Zofran for nausea. Dr Lawton Critical care time spent in reviewing chart, evaluating patient and formulating plan - 36 minutes.
[2018-04-11] MEDS ORDERED: NAPH,MB-DB/K PH,MBDB POWDER PACKET PO ONE (13:21)
--- NOTE | 2018-04-11 14:00 | PN ---
Progress Note (short form) - Note Progress Note: Subjective: The patient was seen and examined at the bedside, he reports some pain in his back. Current Medications Generic Name Dose Route Start Last Admin Trade Name Daniel PRN Reason Stop Dose Admin Acetaminophen 1,000 mg 04/11/18 06:00 04/11/18 05:43 Ofirmev Injection - IVPB 04/11/18 14:01 1,000 mg Q8H MARINO Administration Diazepam 10 mg 04/11/18 11:40 Valium - PO Q12H PRN ANXIETY Emtricitabine/Rilpivirine/Tenofovir 1 each 04/10/18 10:00 04/11/18 11:58 Complera - PO Not Given DAILY MARINO Gabapentin 300 mg 04/09/18 22:00 04/11/18 13:32 Neurontin - PO 300 mg QID MARINO Administration Hydromorphone HCl 10 mg 04/09/18 20:00 04/11/18 05:55 Dilaudid Collar Shaper Operator - MASTER TECHNICIAN 04/16/18 19:59 10 mg MASTER TECHNICIAN MARINO Administration Protocol Sodium Chloride 1,000 mls @ 42 mls/hr 04/10/18 15:45 04/10/18 17:43 Normal Saline - IV 42 mls/hr ASDIR MARINO Administration Lorazepam 1 mg 04/11/18 10:53 Ativan - PO BID PRN Anxiety or Spasms Ondansetron HCl 4 mg 04/09/18 19:29 Zofran Injection IVPUSH Q6H PRN NAUSEA AND/OR VOMITING Oxycodone HCl 5 mg 04/11/18 10:53 04/11/18 11:15 Roxicodone - PO 5 mg Q6H PRN Administration PAIN LEVEL 6-10 Objective: Vital Signs Period Temp Pulse Resp BP Sys/Encinas Pulse Ox Last 24 Hr 98.2 F-98.8 F 90-112 16-22 101-135/52-78 98-100 Physical Exam: General: NAD, A&Ox3 Lungs: CTA bilaterally Heart: RRR, S1S2 Abd: Soft, non-tender, non-distended Skin: Back dressing, c/d/i Neuro: No focal deficits CBCD WBC 12.0 K/mm3 (4.0-10.0) H 04/11/18 05:30 RBC 3.23 M/mm3 (4.00-5.60) L 04/11/18 05:30 Hgb 10.3 GM/dL (11.7-16.9) L 04/11/18 05:30 Hct 30.2 % (35.4-49) L 04/11/18 05:30 MCV 93.3 fl (80-96) 04/11/18 05:30 MCHC 34.2 g/dl (32.0-35.9) 04/11/18 05:30 RDW 13.7 % (11.9-15.9) 04/11/18 05:30 Plt Count 191 K/MM3 (134-434) 04/11/18 05:30 MPV 8.1 fl (7.5-11.1) 04/11/18 05:30 CMP Sodium 141 mmol/L (136-145) 04/11/18 05:30 Potassium 3.7 mmol/L (3.5-5.1) 04/11/18 05:30 Chloride 102 mmol/L (98-107) 04/11/18 05:30 Carbon Dioxide 32 mmol/L (21-32) D 04/11/18 05:30 Anion Gap 7 (8-16) L 04/11/18 05:30 BUN 12 mg/dL (7-18) 04/11/18 05:30 Creatinine 0.8 mg/dL (0.7-1.3) 04/11/18 05:30 Creat Clearance w eGFR > 60 (>60) 04/11/18 05:30 Random Glucose 112 mg/dL (74-106) H 04/11/18 05:30 Calcium 7.8 mg/dL (8.5-10.1) L 04/11/18 05:30 Total Bilirubin 0.4 mg/dL (0.2-1.0) 04/11/18 05:30 AST 111 U/L (15-37) H 04/11/18 05:30 ALT 73 U/L (12-78) 04/11/18 05:30 Alkaline Phosphatase 52 U/L (45-117) 04/11/18 05:30 Total Protein 6.2 g/dl (6.4-8.2) L 04/11/18 05:30 Albumin 3.4 g/dl (3.4-5.0) 04/11/18 05:30 Assessment: This is a 52 year old male with PMHx of HIV, hyperlipidemia who is s /p surgery for lumbar discogenic radiculopathy on 04/09/18 Plan: 1) Lumbar discogenic radiculopathy - S/p L2-L5 laminectomies, L2-L5 facetectomies, L4-L5 PLIF, L2-S1 PISF, Stem cell harvest, Bone autograft, Bone allograft, NGUYEN L5-S1, inspection of fusion mass - Continue MASTER TECHNICIAN - Valium - Acetaminophen IVPB - Incentive spirometer - WBAT - Appreciate surgery consult 2) HIV - Continue Complera 3) F/E/N: - Soft diet - Monitor electrolytes - Hypophosphatemia: replete 4) Prophylaxis: - Mechanical DVT prophylaxis only per surgery - PT 5) Dispo: - Requires continued inpatient care CODE STATUS: FULL CODE Visit type - Emergency Visit Emergency Visit: Yes ED Registration Date: 04/09/18 Care time: The patient presented to the Emergency Department on the above date and was hospitalized for further evaluation of their emergent condition. - New Patient This patient is new to me today: No - Critical Care Critical Care patient: No
--- NOTE | 2018-04-11 15:47 | EKG ---
Test Reason : Blood Pressure : / mmHG Vent. Rate : 092 BPM Atrial Rate : 092 BPM P-R Int : 170 ms QRS Dur : 090 ms QT Int : 338 ms P-R-T Axes : 048 -54 016 degrees QTc Int : 417 ms NORMAL SINUS RHYTHM LEFT ANTERIOR FASCICULAR BLOCK CANNOT RULE OUT INFERIOR INFARCT (MASKED BY FASCICULAR BLOCK?) , AGE UNDETERMINED ABNORMAL ECG NO PREVIOUS ECGS AVAILABLE Confirmed by LYNDA SHORT, DENITA ([id number]) on 04/11/2018 3:47:14 PM Referred By: Elvin RAMEY Confirmed By:DENITA HOWELL MD
[2018-04-11] MEDS: SODIUM CHLORIDE 1,000 ML IV SCH (17:38)
[2018-04-11] MEDS: diazePAM 5 MG TABLET PO PRN (21:32)
[2018-04-11] MEDS: LORazepam 1 MG TABLET PO PRN (21:39)
[2018-04-12] MEDS: HYDROmorphone *PCA* 10MG/50ML DISP.SYRIN PCA SCH ×2 (00:22→22:20)
[2018-04-12] MEDS: oxyCODONE HCL 5 MG TABLET PO PRN ×3 (03:11→18:12)
[2018-04-12 06:10] LABS: HEMATOCRIT 30.6 % (35.4-49); HEMOGLOBIN 10.5 GM/dL (11.7-16.9); MCHC 34.3 g/dl (32.0-35.9); MEAN CELL VOLUME 93.3 fl (80-96); MEAN PLT VOLUME 8.8 fl (7.5-11.1); PLATELET COUNT 216 K/MM3 (134-434); RBC 3.28 M/mm3 (4.00-5.60); RDW 13.7 % (11.9-15.9); WHITE BLOOD COUNT 13.6 K/mm3 (4.0-10.0)
[2018-04-12 06:23] LABS: ANION GAP 8 (8-16); BLOOD UREA NITROGEN 10 mg/dL (7-18); CALCIUM 8.5 mg/dL (8.5-10.1); CHLORIDE 103 mmol/L (98-107); CO2 31 mmol/L (21-32); CREATININE 0.7 mg/dL (0.7-1.3); GLUCOSE,RANDOM 127 mg/dL (74-106); POTASSIUM 3.9 mmol/L (3.5-5.1); SODIUM 142 mmol/L (136-145)
[2018-04-12] MEDS: LORazepam 1 MG TABLET PO PRN (07:49)
[2018-04-12] MEDS: ACETAMINOPHEN 325 MG TABLET (FP) PO PRN (08:31)
--- NOTE | 2018-04-12 08:56 | PN ---
Progress Note (short form) - Note Progress Note: 52 yo Male, s/p laminectomy, Sitting up in chair looks visibly uncomfortable. Says pain is 9/10 avss plan pt is using TANK TRUCK DRIVER, says not effective at times. Ativan for adjuvant, as well as ofirmev. Pt is taking orals will add Oxycontin SR as a basal.
[2018-04-12] MEDS: oxyCODONE HCL 10 MG SUSTAINED ACTING TABLET PO SCH ×2 (09:19→21:58)
[2018-04-12] MEDS: DOCUSATE SODIUM 100 MG CAPSULE (FP) PO SCH (09:19)
[2018-04-12] MEDS: GABAPENTIN 300 MG CAPSULE (FP) PO SCH ×4 (09:19→21:58)
[2018-04-12] MEDS: POLYETHYLENE GLYCOL 3350 119 GM BTL PO SCH (10:00)
[2018-04-12] MEDS ORDERED: PT OWN MED DRAWER 7, Y5N ONE (11:16)
[2018-04-12] MEDS: EMTRICITAB/RILPIVIRINE/TENOFOV 1 EACH TABLET PO SCH (11:20)
--- NOTE | 2018-04-12 12:11 | PN ---
Teaching Attending Note Name of Resident: Justice Yates ATTENDING PHYSICIAN STATEMENT I saw and evaluated the patient. I reviewed the resident's note and discussed the case with the resident. I agree with the resident's findings and plan as documented. SUBJECTIVE: Patient seen and examined in the ICU. Awake and alert. POD#3: L2-L5 laminectomies; L2-L5 facetectomies; L4-L5 PLIF; L2-S1 PISF; Stem cell harvest; Bone autograft; Bone allograft Pain seems a little better. (+) Hiccoughs. Intake & Output 04/09/18 04/10/18 04/11/18 04/12/18 23:59 23:59 23:59 23:59 Intake Total 2350 1764 1554 554 Output Total 1300 3320 3440 380 Balance 1050 -1556 -1886 174 Weight 211 lb 208 lb 207 lb Last Vital Signs Temp Pulse Resp BP Pulse Ox 98.6 F 92 H 22 122/77 98 04/12/18 10:00 04/12/18 10:00 04/12/18 10:00 04/12/18 10:00 04/12/18 08:42 Active Medications Acetaminophen (Tylenol -) 650 mg PO Q4H PRN PRN Reason: PAIN LEVEL 1-5 Last Admin: 04/12/18 08:31 Dose: 650 mg Diazepam (Valium -) 10 mg PO Q12H PRN PRN Reason: ANXIETY Last Admin: 04/11/18 21:32 Dose: 10 mg Docusate Sodium (Colace -) 100 mg PO DAILY [facility] Last Admin: 04/12/18 09:19 Dose: 100 mg Emtricitabine/Rilpivirine/Tenofovir (Complera -) 1 each PO DAILY [facility] Last Admin: 04/12/18 11:20 Dose: 1 each Gabapentin (Neurontin -) 300 mg PO QID [facility] Last Admin: 04/12/18 09:19 Dose: 300 mg Hydromorphone HCl (Dilaudid Cellulose Insulation Helper -) 10 mg SAVINGS TELLER SAVINGS TELLER MARINO; Protocol Stop: 04/16/18 19:59 Last Admin: 04/12/18 00:22 Dose: 10 mg Sodium Chloride (Normal Saline -) 1,000 mls @ 42 mls/hr IV ASDIR [facility]INO Last Admin: 04/11/18 17:38 Dose: 42 mls/hr Lorazepam (Ativan -) 1 mg PO BID PRN PRN Reason: Anxiety or Spasms Last Admin: 04/12/18 07:49 Dose: 1 mg Ondansetron HCl (Zofran Injection) 4 mg IVPUSH Q6H PRN PRN Reason: NAUSEA AND/OR VOMITING Oxycodone HCl (Roxicodone -) 5 mg PO Q6H PRN PRN Reason: PAIN LEVEL 6-10 Last Admin: 04/12/18 07:16 Dose: 5 mg Oxycodone HCl (Oxycontin -) 10 mg PO BID [facility] Stop: 04/15/18 08:57 Last Admin: 04/12/18 09:19 Dose: 10 mg Polyethylene Glycol (Miralax (For Daily Use) -) 17 gm PO DAILY [facility] GENERAL: Awake, alert, more comfortable HEAD: Normal with no signs of trauma. EARS, NOSE, THROAT:. Moist mucous membranes. LUNGS: Breath sounds equal, clear to auscultation bilaterally. No wheezes, and no crackles. No accessory muscle use. HEART: S1S2, regular ABDOMEN: Soft, nontender, not distended, normoactive bowel sounds, no guarding, no rebound, no masses. MUSCULOSKELETAL: Normal range of motion at all joints. No bony deformities or tenderness. UPPER EXTREMITIES: 2+ pulses, warm, well-perfused. No cyanosis. LOWER EXTREMITIES: warm, well-perfused. No calf tenderness. SKIN: Warm, dry, Laboratory Results - last 24 hr 04/12/18 04/12/18 05:30 05:30 WBC 13.6 H RBC 3.28 L Hgb 10.5 L Hct 30.6 L MCV 93.3 MCH 32.0 MCHC 34.3 RDW 13.7 Plt Count 216 MPV 8.8 Sodium 142 Potassium 3.9 Chloride 103 Carbon Dioxide 31 Anion Gap 8 BUN 10 Creatinine 0.7 Creat Clearance w eGFR > 60 Random Glucose 127 H Calcium 8.5 ASSESSMENT/PLAN: POD#3: L2-L5 laminectomies; L2-L5 facetectomies; L4-L5 PLIF; L2-S1 PISF; Stem cell harvest; Bone autograft; Bone allograft Lumbar rediculopathy HPL HIV Plan: Pain control O2 as needed VTE prophylaxis Incentive spirometry. PT/OT/Rehab OOB PO as tolerated D/C drain when < 50cc output Strict I & O Zofran for nausea. Dr Lawton Critical care time spent in reviewing chart, evaluating patient and formulating plan - 36 minutes. OBJECTIVE: ASSESSMENT AND PLAN:
[2018-04-12] MEDS ORDERED: PNEUMOCOCCAL 23 VACCINE 0.5 ML VIAL IM ONE (15:01)
[2018-04-12] MEDS ORDERED: PNEUMOC 13-VAL CONJ-DIP CRM/PF 0.5 ML DISP.SYRIN IM ONE (16:00)
--- NOTE | 2018-04-12 16:51 | PN ---
Physical Exam: SUBJECTIVE: Patient seen and examined today in icu. POD 3- L2-L5 laminectomies, L4-L5 PLIF, L2-S1 PISF. Pt sitting in chair. C/o back spasms. Hemovac to be removed once drainage less than 50. Denies cp or sob. OBJECTIVE: Vital Signs Temperature 98.4 F 04/12/18 14:00 Pulse Rate 89 04/12/18 14:00 Respiratory Rate 22 04/12/18 14:00 Blood Pressure 115/63 04/12/18 14:00 O2 Sat by Pulse Oximetry (%) 98 04/12/18 08:42 GENERAL: AAOx3. Uncomfortable in bed HEAD: Normal with no signs of trauma. EYES: PERRL, extraocular movements intact, sclera anicteric, conjunctiva clear. No ptosis. ENT: Ears normal, nares patent, oropharynx clear without exudates, moist mucous membranes. NECK: Trachea midline, full range of motion, supple. LUNGS: Breath sounds equal, clear to auscultation bilaterally, no wheezes, no crackles, no accessory muscle use. HEART: Regular rate and rhythm, S1, S2 without murmur, rub or gallop. ABDOMEN: Soft, slightly tendner, distended, bowel sounds inaudible EXTREMITIES: 2+ pulses, warm, well-perfused, no edema. NEUROLOGICAL: Cn's in tact. no neuro deficits. Normal speech, gait not observed. PSYCH: Normal mood, normal affect. SKIN: Warm, dry, normal turgor, no rashes or lesions noted Laboratory Results - last 24 hr 04/12/18 04/12/18 05:30 05:30 WBC 13.6 H RBC 3.28 L Hgb 10.5 L Hct 30.6 L MCV 93.3 MCH 32.0 MCHC 34.3 RDW 13.7 Plt Count 216 MPV 8.8 Sodium 142 Potassium 3.9 Chloride 103 Carbon Dioxide 31 Anion Gap 8 BUN 10 Creatinine 0.7 Creat Clearance w eGFR > 60 Random Glucose 127 H Calcium 8.5 Active Medications Generic Name Dose Route Start Last Admin Trade Name Freq PRN Reason Stop Dose Admin Acetaminophen 650 mg 04/12/18 08:16 04/12/18 08:31 Tylenol - PO 650 mg Q4H PRN Administration PAIN LEVEL 1-5 Diazepam 10 mg 04/11/18 11:40 04/11/18 21:32 Valium - PO 10 mg Q12H PRN Administration ANXIETY Docusate Sodium 100 mg 04/12/18 10:00 04/12/18 09:19 Colace - PO 100 mg DAILY [facility] Administration Emtricitabine/Rilpivirine/Tenofovir 1 each 04/10/18 10:00 04/12/18 11:20 Complera - PO 1 each DAILY [facility] Administration Gabapentin 300 mg 04/09/18 22:00 04/12/18 15:03 Neurontin - PO 300 mg QID MARINO Administration Hydromorphone HCl 10 mg 04/09/18 20:00 04/12/18 00:22 Dilaudid Hot Roll Laminator - CURATOR 04/16/18 19:59 10 mg CURATOR MARINO Administration Protocol Sodium Chloride 1,000 mls @ 42 mls/hr 04/10/18 15:45 04/11/18 17:38 Normal Saline - IV 42 mls/hr ASDIR MARINO Administration Lorazepam 1 mg 04/11/18 10:53 04/12/18 07:49 Ativan - PO 1 mg BID PRN Administration Anxiety or Spasms Ondansetron HCl 4 mg 04/09/18 19:29 Zofran Injection IVPUSH Q6H PRN NAUSEA AND/OR VOMITING Oxycodone HCl 5 mg 04/11/18 10:53 04/12/18 07:16 Roxicodone - PO 5 mg Q6H PRN Administration PAIN LEVEL 6-10 Oxycodone HCl 10 mg 04/12/18 10:00 04/12/18 09:19 Oxycontin - PO 04/15/18 08:57 10 mg BID MARINO Administration Polyethylene Glycol 17 gm 04/12/18 10:00 04/12/18 10:00 Miralax (For Daily Use) - PO 17 g DAILY [facility] Administration ASSESSMENT/PLAN: 52 yo M with pmhx of HIV and HLD POD#1 s/p L2-L5 laminectomies, L4-L5 PLIF, L2- S1 PISF 1. Lumbar Radiculopathy s/p L2-L5 laminectomies, L4-L5 PLIF, L2-S1 PISF For pain: Ativan 1 mg po bid Valium 10 mg po q12H Gabapentin 300 mg po qid Ofirimiev injection 1000 mg IVPB Q8H Hydromorphone hcl 10 mg paper novelty maker Incentive Spirometry Physical Therapy to aid with ambulation 2. HIV c/w HIV meds Complera (Emtricitabine, rilpivirine, tenofovir) FEN Fluids - NS @ 42 ml/hr Electrolytes -Monitor electrolytes Nutrition-Soft diet Visit type - Emergency Visit Emergency Visit: No - New Patient This patient is new to me today: No - Critical Care Critical Care patient: Yes Total Critical Care Time (in minutes): 35 Critical Care Statement: The care of this patient involved high complexity decision making to prevent further life threatening deterioration of the patient 's condition and/or to evaluate & treat vital organ system(s) failure or risk of failure.
[2018-04-12] MEDS: diazePAM 5 MG TABLET PO PRN (16:53)
--- NOTE | 2018-04-12 17:43 | PN ---
Progress Note (short form) - Note Progress Note: Subjective: The patient was seen and examined sitting in the chair, he reports some pain in his back. + hiccups Current Medications Generic Name Dose Route Start Last Admin Trade Name Freq PRN Reason Stop Dose Admin Acetaminophen 650 mg 04/12/18 08:16 04/12/18 08:31 Tylenol - PO 650 mg Q4H PRN Administration PAIN LEVEL 1-5 Diazepam 10 mg 04/11/18 11:40 04/12/18 16:53 Valium - PO 10 mg Q12H PRN Administration ANXIETY Docusate Sodium 100 mg 04/12/18 10:00 04/12/18 09:19 Colace - PO 100 mg DAILY [facility] Administration Emtricitabine/Rilpivirine/Tenofovir 1 each 04/10/18 10:00 04/12/18 11:20 Complera - PO 1 each DAILY [facility] Administration Gabapentin 300 mg 04/09/18 22:00 04/12/18 15:03 Neurontin - PO 300 mg QID [facility] Administration Hydromorphone HCl 10 mg 04/09/18 20:00 04/12/18 00:22 Dilaudid Egg Buyer - CLINICAL SALES CONSULTANT 04/16/18 19:59 10 mg CLINICAL SALES CONSULTANT [facility]INO Administration Protocol Sodium Chloride 1,000 mls @ 42 mls/hr 04/10/18 15:45 04/11/18 17:38 Normal Saline - IV 42 mls/hr ASDIR MAIRNO Administration Lorazepam 1 mg 04/11/18 10:53 04/12/18 07:49 Ativan - PO 1 mg BID PRN Administration Anxiety or Spasms Ondansetron HCl 4 mg 04/09/18 19:29 Zofran Injection IVPUSH Q6H PRN NAUSEA AND/OR VOMITING Oxycodone HCl 5 mg 04/11/18 10:53 04/12/18 07:16 Roxicodone - PO 5 mg Q6H PRN Administration PAIN LEVEL 6-10 Oxycodone HCl 10 mg 04/12/18 10:00 04/12/18 09:19 Oxycontin - PO 04/15/18 08:57 10 mg BID [facility]INO Administration Polyethylene Glycol 17 gm 04/12/18 10:00 04/12/18 10:00 Miralax (For Daily Use) - PO 17 g DAILY [facility] Administration Objective: Vital Signs Period Temp Pulse Resp BP Sys/Encinas Pulse Ox Last 24 Hr 98.4 F-99.7 F 78-100 13-22 101-134/50-96 98-98 Physical Exam: General: NAD, A&Ox3 Lungs: CTA bilaterally Heart: RRR, S1S2 Abd: Soft, non-tender, non-distended Skin: Back dressing, c/d/i, drain in place Neuro: No focal deficits CBCD WBC 13.6 K/mm3 (4.0-10.0) H 04/12/18 05:30 RBC 3.28 M/mm3 (4.00-5.60) L 04/12/18 05:30 Hgb 10.5 GM/dL (11.7-16.9) L 04/12/18 05:30 Hct 30.6 % (35.4-49) L 04/12/18 05:30 MCV 93.3 fl (80-96) 04/12/18 05:30 MCHC 34.3 g/dl (32.0-35.9) 04/12/18 05:30 RDW 13.7 % (11.9-15.9) 04/12/18 05:30 Plt Count 216 K/MM3 (134-434) 04/12/18 05:30 MPV 8.8 fl (7.5-11.1) 04/12/18 05:30 CMP Sodium 142 mmol/L (136-145) 04/12/18 05:30 Potassium 3.9 mmol/L (3.5-5.1) 04/12/18 05:30 Chloride 103 mmol/L (98-107) 04/12/18 05:30 Carbon Dioxide 31 mmol/L (21-32) 04/12/18 05:30 Anion Gap 8 (8-16) 04/12/18 05:30 BUN 10 mg/dL (7-18) 04/12/18 05:30 Creatinine 0.7 mg/dL (0.7-1.3) 04/12/18 05:30 Creat Clearance w eGFR > 60 (>60) 04/12/18 05:30 Random Glucose 127 mg/dL (74-106) H 04/12/18 05:30 Calcium 8.5 mg/dL (8.5-10.1) 04/12/18 05:30 Total Bilirubin 0.4 mg/dL (0.2-1.0) 04/11/18 05:30 AST 111 U/L (15-37) H 04/11/18 05:30 ALT 73 U/L (12-78) 04/11/18 05:30 Alkaline Phosphatase 52 U/L (45-117) 04/11/18 05:30 Total Protein 6.2 g/dl (6.4-8.2) L 04/11/18 05:30 Albumin 3.4 g/dl (3.4-5.0) 04/11/18 05:30 Assessment: This is a 52 year old male with PMHx of HIV, hyperlipidemia who is s /p surgery for lumbar discogenic radiculopathy on 04/09/18 Plan: 1) Lumbar discogenic radiculopathy - S/p L2-L5 laminectomies, L2-L5 facetectomies, L4-L5 PLIF, L2-S1 PISF, Stem cell harvest, Bone autograft, Bone allograft, NGUYEN L5-S1, inspection of fusion mass - Continue CLINICAL SALES CONSULTANT - Valium - Acetaminophen IVPB - Incentive spirometer - WBAT - Appreciate surgery consult 2) HIV - Continue Complera 3) F/E/N: - Soft diet - Monitor electrolytes 4) Prophylaxis: - Mechanical DVT prophylaxis only per surgery - PT 5) Dispo: - Requires continued inpatient care CODE STATUS: FULL CODE Visit type - Emergency Visit Emergency Visit: Yes ED Registration Date: 04/09/18 Care time: The patient presented to the Emergency Department on the above date and was hospitalized for further evaluation of their emergent condition. - New Patient This patient is new to me today: No - Critical Care Critical Care patient: No
[2018-04-13] MEDS: ACETAMINOPHEN 325 MG TABLET (FP) PO PRN (03:49)
[2018-04-13 06:31] LABS: ALBUMIN 3.1 g/dl (3.4-5.0); ANION GAP 7 (8-16); BLOOD UREA NITROGEN 10 mg/dL (7-18); CALCIUM 8.6 mg/dL (8.5-10.1); CHLORIDE 104 mmol/L (98-107); CO2 29 mmol/L (21-32); GLUCOSE,RANDOM 132 mg/dL (74-106); SODIUM 140 mmol/L (136-145)
[2018-04-13 06:35] LABS: ALK PHOS 52 U/L (45-117); BILIRUBIN,TOTAL 0.5 mg/dL (0.2-1.0); CREATININE 0.7 mg/dL (0.7-1.3); SGOT/AST 91 U/L (15-37); SGPT/ALT 69 U/L (12-78); TOT PROT 6.3 g/dl (6.4-8.2)
[2018-04-13 07:21] LABS: HEMATOCRIT 30.7 % (35.4-49); HEMOGLOBIN 10.4 GM/dL (11.7-16.9); MCH 31.5 pg (25.7-33.7); MEAN CELL VOLUME 92.6 fl (80-96); MEAN PLT VOLUME 9.2 fl (7.5-11.1); PLATELET COUNT 264 K/MM3 (134-434); RBC 3.31 M/mm3 (4.00-5.60); RDW 13.4 % (11.9-15.9); WHITE BLOOD COUNT 11.6 K/mm3 (4.0-10.0)
[2018-04-13] MEDS: oxyCODONE HCL 5 MG TABLET PO PRN ×5 (08:14→19:32)
--- NOTE | 2018-04-13 09:10 | PN ---
Progress Note (short form) - Note Progress Note: Anesthesiology Pain Service 52 y.o. POD #4 s/p L2-S1 Laminectomy with fusion under GA with post-op OPERATOR LIGHTS. Pt. awake and alert, sitting in chair eating breakfast. He does c/o some pain but it does come and go. Sore throat present as well. Denies n/v. VSS. 52 y.o. man s/p lumbar spine surgery with post-op pain but stable post- operative course. Will D/C OPERATOR LIGHTS since pt. is tolerating scheduled PO oxycontin and add PRN oxycodone dosing. Encouraged PO fluid intake for sore throat. Will defer to primary team as far as need for ICU care. D/w RN to call Anesthesia if any issues with pain management.
[2018-04-13] MEDS ORDERED: PT OWN MED DRAWER 7, Y5N ONE ×2 (09:26→20:22)
[2018-04-13] MEDS: oxyCODONE HCL 10 MG SUSTAINED ACTING TABLET PO SCH ×2 (09:44→22:28)
[2018-04-13] MEDS: GABAPENTIN 300 MG CAPSULE (FP) PO SCH ×4 (09:44→22:28)
[2018-04-13] MEDS: DOCUSATE SODIUM 100 MG CAPSULE (FP) PO SCH (09:45)
[2018-04-13] MEDS: EMTRICITAB/RILPIVIRINE/TENOFOV 1 EACH TABLET PO SCH (09:45)
[2018-04-13] MEDS: POLYETHYLENE GLYCOL 3350 119 GM BTL PO SCH ×3 (09:59→22:27)
--- NOTE | 2018-04-13 12:59 | PN ---
Teaching Attending Note Name of Resident: Justice Yates ATTENDING PHYSICIAN STATEMENT I saw and evaluated the patient. I reviewed the resident's note and discussed the case with the resident. I agree with the resident's findings and plan as documented. SUBJECTIVE: Patient seen and examined in the ICU. Awake and alert. POD#4: L2-L5 laminectomies; L2-L5 facetectomies; L4-L5 PLIF; L2-S1 PISF; Stem cell harvest; Bone autograft; Bone allograft Pain seems became worse today while he was straining to defecate. No BM for several days. (+) Hiccoughs. Intake & Output 04/10/18 04/11/18 04/12/18 04/13/18 23:59 23:59 23:59 23:59 Intake Total 1764 1554 1558 620 Output Total 3320 3440 1135 1335 Balance -1556 -1886 423 -715 Weight 208 lb 207 lb Last Vital Signs Temp Pulse Resp BP Pulse Ox 98.3 F 86 18 140/83 98 04/13/18 10:00 04/13/18 12:00 04/13/18 12:00 04/13/18 12:00 04/13/18 09:00 Active Medications Acetaminophen (Tylenol -) 650 mg PO Q4H PRN PRN Reason: PAIN LEVEL 1-5 Last Admin: 04/13/18 03:49 Dose: 650 mg Chlorpromazine HCl (Thorazine -) 25 mg PO Q8H PRN PRN Reason: hiccups Diazepam (Valium -) 10 mg PO Q12H PRN PRN Reason: ANXIETY Last Admin: 04/12/18 16:53 Dose: 10 mg Docusate Sodium (Colace -) 100 mg PO DAILY [facility] Last Admin: 04/13/18 09:45 Dose: 100 mg Emtricitabine/Rilpivirine/Tenofovir (Complera -) 1 each PO DAILY [facility] Last Admin: 04/13/18 09:45 Dose: 1 each Gabapentin (Neurontin -) 300 mg PO QID [facility] Last Admin: 04/13/18 09:44 Dose: 300 mg Sodium Chloride (Normal Saline -) 1,000 mls @ 42 mls/hr IV ASDIR [facility] Last Admin: 04/11/18 17:38 Dose: 42 mls/hr Lorazepam (Ativan -) 1 mg PO BID PRN PRN Reason: Anxiety or Spasms Last Admin: 04/12/18 07:49 Dose: 1 mg Ondansetron HCl (Zofran Injection) 4 mg IVPUSH Q6H PRN PRN Reason: NAUSEA AND/OR VOMITING Oxycodone HCl (Roxicodone -) 5 mg PO Q6H PRN PRN Reason: PAIN LEVEL 6-10 Last Admin: 04/13/18 08:14 Dose: 5 mg Oxycodone HCl (Oxycontin -) 10 mg PO BID [facility] Stop: 04/15/18 08:57 Last Admin: 04/13/18 09:44 Dose: 10 mg Oxycodone HCl (Roxicodone -) 10 mg PO Q3H PRN PRN Reason: PAIN LEVEL 6-10 Last Admin: 04/13/18 11:32 Dose: 10 mg Polyethylene Glycol (Miralax (For Daily Use) -) 17 gm PO DAILY [facility] Last Admin: 04/13/18 09:59 Dose: 17 g GENERAL: Awake, alert, more comfortable HEAD: Normal with no signs of trauma. EARS, NOSE, THROAT:. Moist mucous membranes. LUNGS: Breath sounds equal, clear to auscultation bilaterally. No wheezes, and no crackles. No accessory muscle use. HEART: S1S2, regular ABDOMEN: Soft, nontender, not distended, normoactive bowel sounds, no guarding, no rebound, no masses. MUSCULOSKELETAL: Normal range of motion at all joints. No bony deformities or tenderness. UPPER EXTREMITIES: 2+ pulses, warm, well-perfused. No cyanosis. LOWER EXTREMITIES: warm, well-perfused. No calf tenderness. SKIN: Warm, dry, Laboratory Results - last 24 hr 04/13/18 04/13/18 05:30 05:30 WBC 11.6 H RBC 3.31 L Hgb 10.4 L Hct 30.7 L MCV 92.6 MCH 31.5 MCHC 34.0 RDW 13.4 Plt Count 264 D MPV 9.2 Sodium 140 Potassium 4.0 Chloride 104 Carbon Dioxide 29 Anion Gap 7 L BUN 10 Creatinine 0.7 Creat Clearance w eGFR > 60 Random Glucose 132 H Calcium 8.6 Total Bilirubin 0.5 AST 91 H ALT 69 Alkaline Phosphatase 52 Total Protein 6.3 L Albumin 3.1 L ASSESSMENT/PLAN: POD#3: L2-L5 laminectomies; L2-L5 facetectomies; L4-L5 PLIF; L2-S1 PISF; Stem cell harvest; Bone autograft; Bone allograft Lumbar rediculopathy HPL HIV Plan: Pain control O2 as needed VTE prophylaxis Incentive spirometry. PT/OT/Rehab OOB PO as tolerated D/C drain when < 50cc output Strict I & O Zofran for nausea. Vy Lawton Critical care time spent in reviewing chart, evaluating patient and formulating plan - 36 minutes.
[2018-04-13] MEDS: chlorproMAZINE HCL 25 MG TABLET PO PRN ×2 (13:12→22:30)
--- NOTE | 2018-04-13 15:40 | PN ---
Physical Exam: SUBJECTIVE: Patient seen and examined today in icu. POD 4- L2-L5 laminectomies, L4-L5 PLIF, L2-S1 PISF. C/o soar throat and hiccups. Also states he has radiating pain down his left leg. Denies cp, sob, chau, or nausea. OBJECTIVE: Vital Signs Temperature 98.3 F 04/13/18 10:00 Pulse Rate 86 04/13/18 12:00 Respiratory Rate 18 04/13/18 12:00 Blood Pressure 140/83 04/13/18 12:00 O2 Sat by Pulse Oximetry (%) 98 04/13/18 09:00 GENERAL: The patient is awake, alert, and fully oriented. Pain subsiding. HEAD: Normal with no signs of trauma. EYES: PERRL, extraocular movements intact, sclera anicteric, conjunctiva clear. No ptosis. ENT: Ears normal, nares patent, oropharynx clear without exudates, moist mucous membranes. NECK: Trachea midline, full range of motion, supple. LUNGS: Breath sounds equal, clear to auscultation bilaterally, no wheezes, no crackles, no accessory muscle use. HEART: Regular rate and rhythm, S1, S2 without murmur, rub or gallop. ABDOMEN: Soft, nontender, nondistended, normoactive bowel sounds, no guarding, no rebound, no hepatosplenomegaly, no masses. EXTREMITIES: 2+ pulses, warm, well-perfused, no edema. NEUROLOGICAL: Cranial nerves II through XII grossly intact. Normal speech, gait not observed. PSYCH: Normal mood, normal affect. SKIN: Warm, dry, normal turgor, no rashes or lesions noted Laboratory Results - last 24 hr 04/13/18 04/13/18 05:30 05:30 WBC 11.6 H RBC 3.31 L Hgb 10.4 L Hct 30.7 L MCV 92.6 MCH 31.5 MCHC 34.0 RDW 13.4 Plt Count 264 D MPV 9.2 Sodium 140 Potassium 4.0 Chloride 104 Carbon Dioxide 29 Anion Gap 7 L BUN 10 Creatinine 0.7 Creat Clearance w eGFR > 60 Random Glucose 132 H Calcium 8.6 Total Bilirubin 0.5 AST 91 H ALT 69 Alkaline Phosphatase 52 Total Protein 6.3 L Albumin 3.1 L Active Medications Generic Name Dose Route Start Last Admin Trade Name Freq PRN Reason Stop Dose Admin Acetaminophen 650 mg 04/12/18 08:16 04/13/18 03:49 Tylenol - PO 650 mg Q4H PRN Administration PAIN LEVEL 1-5 Chlorpromazine HCl 25 mg 04/13/18 12:22 04/13/18 13:12 Thorazine - PO 25 mg Q8H PRN Administration hiccups Diazepam 10 mg 04/11/18 11:40 04/12/18 16:53 Valium - PO 10 mg Q12H PRN Administration ANXIETY Docusate Sodium 100 mg 04/12/18 10:00 04/13/18 09:45 Colace - PO 100 mg DAILY YOLIS Administration Emtricitabine/Rilpivirine/Tenofovir 1 each 04/10/18 10:00 04/13/18 09:45 Complera - PO 1 each DAILY YOLIS Administration Gabapentin 300 mg 04/09/18 22:00 04/13/18 14:39 Neurontin - PO 300 mg QID YOLIS Administration Sodium Chloride 1,000 mls @ 42 mls/hr 04/10/18 15:45 04/11/18 17:38 Normal Saline - IV 42 mls/hr ASDIR YOLIS Administration Lorazepam 1 mg 04/11/18 10:53 04/12/18 07:49 Ativan - PO 1 mg BID PRN Administration Anxiety or Spasms Ondansetron HCl 4 mg 04/09/18 19:29 Zofran Injection IVPUSH Q6H PRN NAUSEA AND/OR VOMITING Oxycodone HCl 5 mg 04/11/18 10:53 04/13/18 08:14 Roxicodone - PO 5 mg Q6H PRN Administration PAIN LEVEL 6-10 Oxycodone HCl 10 mg 04/12/18 10:00 04/13/18 09:44 Oxycontin - PO 04/15/18 08:57 10 mg BID YOLIS Administration Oxycodone HCl 10 mg 04/13/18 09:03 04/13/18 14:38 Roxicodone - PO 10 mg Q3H PRN Administration PAIN LEVEL 6-10 Polyethylene Glycol 17 gm 04/12/18 10:00 04/13/18 09:59 Miralax (For Daily Use) - PO 17 g DAILY YOLIS Administration ASSESSMENT/PLAN: 1. Lumbar Radiculopathy s/p L2-L5 laminectomies, L4-L5 PLIF, L2-S1 PISF For pain: MANAGER CUSTOMER d/c as pt able to tolerate sched pain medication Valium 10 mg po q12H Gabapentin 300 mg po qid Ativan 1 mg po bid prn 10 mg po bid oxycodone yolis 10 mg po oxycodone q3h prn Tylenol 650 mg po q4h prn Incentive Spirometry Chlorpromazine for hiccup- 25 MG PO Q8H PRN Physical Therapy to aid with ambulation 2. HIV c/w HIV meds Complera (Emtricitabine, rilpivirine, tenofovir) FEN Fluids - NS 1,000 ml @ 42 nls/hr Electrolytes - monitor electrolytes Nutrition-Soft diet Visit type - Emergency Visit Emergency Visit: No - New Patient This patient is new to me today: No - Critical Care Critical Care patient: Yes Total Critical Care Time (in minutes): 35 Critical Care Statement: The care of this patient involved high complexity decision making to prevent further life threatening deterioration of the patient 's condition and/or to evaluate & treat vital organ system(s) failure or risk of failure.
[2018-04-13] MEDS ORDERED: BISACODYL 10 MG SUPP.RECT RC PRN (19:15)
[2018-04-14] MEDS: oxyCODONE HCL 5 MG TABLET PO PRN ×6 (00:14→21:18)
[2018-04-14 06:28] LABS: BASO % 0.3 % (0-2.0); EOS % 2.3 % (0-4.5); HEMATOCRIT 32.7 % (35.4-49); HEMOGLOBIN 11.3 GM/dL (11.7-16.9); LYMPH % 29.2 % (8-40); MCH 31.9 pg (25.7-33.7); MCHC 34.5 g/dl (32.0-35.9); MEAN CELL VOLUME 92.5 fl (80-96); MEAN PLT VOLUME 8.7 fl (7.5-11.1); MONO % 7.4 % (3.8-10.2); NEUT % 60.8 % (42.8-82.8); PLATELET COUNT 300 K/MM3 (134-434); RBC 3.53 M/mm3 (4.00-5.60); RDW 13.1 % (11.9-15.9); WHITE BLOOD COUNT 9.7 K/mm3 (4.0-10.0)
[2018-04-14 06:52] LABS: ALBUMIN 3.5 g/dl (3.4-5.0); ANION GAP 9 (8-16); BLOOD UREA NITROGEN 11 mg/dL (7-18); CALCIUM 8.9 mg/dL (8.5-10.1); CHLORIDE 104 mmol/L (98-107); CO2 30 mmol/L (21-32); GLUCOSE,RANDOM 129 mg/dL (74-106); MAGNESIUM 2.2 mg/dL (1.8-2.4); POTASSIUM 3.7 mmol/L (3.5-5.1); SODIUM 143 mmol/L (136-145)
[2018-04-14 06:55] LABS: ALK PHOS 61 U/L (45-117); BILIRUBIN,TOTAL 0.6 mg/dL (0.2-1.0); CREATININE 0.8 mg/dL (0.7-1.3); PHOSPHOROUS 3.8 mg/dL (2.5-4.9); SGOT/AST 92 U/L (15-37); SGPT/ALT 78 U/L (12-78); TOT PROT 6.9 g/dl (6.4-8.2)
[2018-04-14] MEDS ORDERED: PT OWN MED DRAWER 7, Y5N ONE (09:19)
[2018-04-14] MEDS: GABAPENTIN 300 MG CAPSULE (FP) PO SCH ×4 (09:22→21:20)
[2018-04-14] MEDS: oxyCODONE HCL 10 MG SUSTAINED ACTING TABLET PO SCH (09:22)
[2018-04-14] MEDS: POLYETHYLENE GLYCOL 3350 119 GM BTL PO SCH ×2 (09:23→21:20)
[2018-04-14] MEDS: EMTRICITAB/RILPIVIRINE/TENOFOV 1 EACH TABLET PO SCH (09:23)
[2018-04-14] MEDS: chlorproMAZINE HCL 25 MG TABLET PO PRN (09:26)
--- NOTE | 2018-04-14 09:27 | PN ---
Physical Exam: SUBJECTIVE: Patient seen and examined at bedside. Hiccups. Pain is well- controlled. WAXING MACHINE OPERATOR HELPER off. OBJECTIVE: Vital Signs Period Temp Pulse Resp BP Sys/Encinas Pulse Ox Last 24 Hr 97.4 F-98.3 F 86-134 18-30 119-158/68-114 98-98 GENERAL: The patient is awake, alert, and fully oriented, in no acute distress. LUNGS: Breath sounds equal, clear to auscultation bilaterally, no wheezes, no crackles, no accessory muscle use. HEART: Regular rate and rhythm, S1, S2 ABDOMEN: Soft, nontender, nondistended MUSCULOSKELETAL: Surgical dressing entire length of spine c/d/i; no surrounding erythema or edema EXTREMITIES: 2+ pulses, warm, well-perfused, no edema. NEUROLOGICAL: Cranial nerves II through XII grossly intact. Normal speech. Active Medications Generic Name Dose Route Start Trade Name Freq PRN Reason Stop Acetaminophen 650 mg 04/12/18 08:16 Tylenol - PO Q4H PRN PAIN LEVEL 1-5 Bisacodyl 10 mg 04/13/18 19:15 Dulcolax Suppository - RC PRN PRN CONSTIPATION Chlorpromazine HCl 25 mg 04/13/18 12:22 Thorazine - PO Q8H PRN hiccups Diazepam 10 mg 04/11/18 11:40 Valium - PO Q12H PRN ANXIETY Docusate Sodium 300 mg 04/13/18 22:00 Colace - PO HS [facility] Emtricitabine/Rilpivirine/Tenofovir 1 each 04/10/18 10:00 Complera - PO DAILY [facility] Gabapentin 300 mg 04/09/18 22:00 Neurontin - PO QID [facility] Lorazepam 1 mg 04/11/18 10:53 Ativan - PO BID PRN Anxiety or Spasms Ondansetron HCl 4 mg 04/09/18 19:29 Zofran Injection IVPUSH Q6H PRN NAUSEA AND/OR VOMITING Oxycodone HCl 5 mg 04/11/18 10:53 Roxicodone - PO Q6H PRN PAIN LEVEL 6-10 Oxycodone HCl 10 mg 04/12/18 10:00 Oxycontin - PO 04/15/18 08:57 BID [facility]INO Oxycodone HCl 10 mg 04/13/18 09:03 Roxicodone - PO Q3H PRN PAIN LEVEL 6-10 Polyethylene Glycol 17 gm 04/13/18 19:15 Miralax (For Daily Use) - PO BID [facility] ASSESSMENT/PLAN 52 year-old male with PMH of HIV, hyperlipidemia who is s/p surgery for lumbar discogenic radiculopathy on 04/09/18. Lumbar discogenic radiculopathy --s/p L2-L5 laminectomies, L2-L5 facetectomies, L4-L5 PLIF, L2-S1 PISF, stem cell harvest, bone autograft, bone allograft, NGUYEN L5-S1, inspection of fusion mass --WAXING MACHINE OPERATOR HELPER off; pain presently well-managed --walked to bathroom today, had BM --continue bowel regimen Hiccups --continue thorazine HIV --continue Complera FEN Fluids: PO intake adequate Electrolytes: replete as indicated Nutrition: soft diet DVT prophylaxis: mechanical DVT prophylaxis only per surgery Physical therapy Dispo: continues to require inpatient care. Full Code. Visit type - Emergency Visit Emergency Visit: No - New Patient This patient is new to me today: Yes Date on this admission: 04/14/18 - Critical Care Critical Care patient: Yes Total Critical Care Time (in minutes): 35 Critical Care Statement: The care of this patient involved high complexity decision making to prevent further life threatening deterioration of the patient 's condition and/or to evaluate & treat vital organ system(s) failure or risk of failure.
--- NOTE | 2018-04-14 09:29 | PN ---
Physical Exam: SUBJECTIVE: Patient seen and examined. Complaining of 10/10 pain. Hiccups. OBJECTIVE: Vital Signs Period Temp Pulse Resp BP Sys/Encinas Pulse Ox Last 24 Hr 97.4 F-98.3 F 86-134 18-30 119-158/68-114 98-98 GENERAL: The patient is awake, alert, and fully oriented, in moderate distress secondary to pain. LUNGS: Breath sounds equal, clear to auscultation bilaterally, no wheezes, no crackles, no accessory muscle use. HEART: Regular rate and rhythm, S1, S2 ABDOMEN: Soft, nontender, nondistended MUSCULOSKELETAL: Surgical dressing entire length of spine c/d/i; no surrounding erythema or edema EXTREMITIES: 2+ pulses, warm, well-perfused, no edema. NEUROLOGICAL: Cranial nerves II through XII grossly intact. Normal speech. Laboratory Results - last 24 hr 04/14/18 04/14/18 05:30 05:30 WBC 9.7 RBC 3.53 L Hgb 11.3 L Hct 32.7 L MCV 92.5 MCH 31.9 MCHC 34.5 RDW 13.1 Plt Count 300 MPV 8.7 Absolute Neuts (auto) 5.9 Neutrophils % 60.8 Lymphocytes % 29.2 Monocytes % 7.4 Eosinophils % 2.3 Basophils % 0.3 Nucleated RBC % 0 Sodium 143 Potassium 3.7 Chloride 104 Carbon Dioxide 30 Anion Gap 9 BUN 11 Creatinine 0.8 Creat Clearance w eGFR > 60 Random Glucose 129 H Calcium 8.9 Phosphorus 3.8 D Magnesium 2.2 Total Bilirubin 0.6 AST 92 H ALT 78 Alkaline Phosphatase 61 Total Protein 6.9 Albumin 3.5 Active Medications Generic Name Dose Route Start Last Admin Trade Name Freq PRN Reason Stop Dose Admin Acetaminophen 650 mg 04/12/18 08:16 04/13/18 03:49 Tylenol - PO 650 mg Q4H PRN Administration PAIN LEVEL 1-5 Bisacodyl 10 mg 04/13/18 19:15 Dulcolax Suppository - RC PRN PRN CONSTIPATION Chlorpromazine HCl 25 mg 04/13/18 12:22 04/14/18 09:26 Thorazine - PO 25 mg Q8H PRN Administration hiccups Diazepam 10 mg 04/11/18 11:40 04/12/18 16:53 Valium - PO 10 mg Q12H PRN Administration ANXIETY Docusate Sodium 300 mg 04/13/18 22:00 Colace - PO HS MARINO Emtricitabine/Rilpivirine/Tenofovir 1 each 04/10/18 10:00 04/14/18 09:23 Complera - PO 1 each DAILY [facility] Administration Gabapentin 300 mg 04/09/18 22:00 04/14/18 09:22 Neurontin - PO 300 mg QID [facility] Administration Lorazepam 1 mg 04/11/18 10:53 04/12/18 07:49 Ativan - PO 1 mg BID PRN Administration Anxiety or Spasms Ondansetron HCl 4 mg 04/09/18 19:29 Zofran Injection IVPUSH Q6H PRN NAUSEA AND/OR VOMITING Oxycodone HCl 5 mg 04/11/18 10:53 04/13/18 17:03 Roxicodone - PO 5 mg Q6H PRN Administration PAIN LEVEL 6-10 Oxycodone HCl 10 mg 04/12/18 10:00 04/14/18 09:22 Oxycontin - PO 04/15/18 08:57 10 mg BID [facility] Administration Oxycodone HCl 10 mg 04/13/18 09:03 04/14/18 06:02 Roxicodone - PO 10 mg Q3H PRN Administration PAIN LEVEL 6-10 Polyethylene Glycol 17 gm 04/13/18 19:15 04/14/18 09:23 Miralax (For Daily Use) - PO 17 gm BID [facility] Administration ASSESSMENT/PLAN: 52 year-old male with PMH significant for HIV and lumbar discogenic radiculopathy, s/p surgery POD #5. Lumbar discogenic radiculopathy --s/p L2-L5 laminectomies, L2-L5 facetectomies, L4-L5 PLIF, L2-S1 PISF, stem cell harvest, bone autograft, bone allograft, NGUYEN L5-S1, inspection of fusion mass --complains of constant 10/10 pain on PO meds --seen and re-evaluated by anesthesia, increased oxycontin to 30mg BID and oxycodone PRN 10 and 15mg for moderate and severe pain q3h, and valium PRN for muscle spasm --continue bowel regimen Hiccups --has been on thorazine to no effect; d/c'd --ordered reglan PO 10mg x 1 HIV --continue Complera FEN Fluids: PO intake adequate Electrolytes: replete as indicated Nutrition: soft diet DVT prophylaxis: mechanical DVT prophylaxis only per surgery Physical therapy Dispo: continues to require inpatient care. Full Code. Visit type - Emergency Visit Emergency Visit: Yes ED Registration Date: 04/09/18 Care time: The patient presented to the Emergency Department on the above date and was hospitalized for further evaluation of their emergent condition. - New Patient This patient is new to me today: No - Critical Care Critical Care patient: No
--- NOTE | 2018-04-14 10:26 | PN ---
Teaching Attending Note Name of Resident: Christiana Alegria ATTENDING PHYSICIAN STATEMENT I saw and evaluated the patient. I reviewed the resident's note and discussed the case with the resident. I agree with the resident's findings and plan as documented. SUBJECTIVE: Patient seen and examined in the ICU. Awake and alert. POD#5: L2-L5 laminectomies; L2-L5 facetectomies; L4-L5 PLIF; L2-S1 PISF; Stem cell harvest; Bone autograft; Bone allograft Still with pain issues, especially after mobilizing. (+) Hiccoughs. Intake & Output 04/11/18 04/12/18 04/13/18 04/14/18 23:59 23:59 23:59 23:59 Intake Total 1554 1558 1360 480 Output Total 3440 1135 3155 710 Balance -1886 423 -1795 -230 Weight 207 lb 199 lb 8 oz Last Vital Signs Temp Pulse Resp BP Pulse Ox 97.4 F L 134 H 20 119/77 98 04/14/18 02:00 04/14/18 08:00 04/14/18 08:00 04/14/18 08:00 04/14/18 06:57 Active Medications Acetaminophen (Tylenol -) 650 mg PO Q4H PRN PRN Reason: PAIN LEVEL 1-5 Last Admin: 04/13/18 03:49 Dose: 650 mg Bisacodyl (Dulcolax Suppository -) 10 mg RC PRN PRN PRN Reason: CONSTIPATION Chlorpromazine HCl (Thorazine -) 25 mg PO Q8H PRN PRN Reason: hiccups Last Admin: 04/14/18 09:26 Dose: 25 mg Diazepam (Valium -) 10 mg PO Q12H PRN PRN Reason: ANXIETY Last Admin: 04/12/18 16:53 Dose: 10 mg Docusate Sodium (Colace -) 300 mg PO HS MARINO Emtricitabine/Rilpivirine/Tenofovir (Complera -) 1 each PO DAILY [facility] Last Admin: 04/14/18 09:23 Dose: 1 each Gabapentin (Neurontin -) 300 mg PO QID [facility] Last Admin: 04/14/18 09:22 Dose: 300 mg Lorazepam (Ativan -) 1 mg PO BID PRN PRN Reason: Anxiety or Spasms Last Admin: 04/12/18 07:49 Dose: 1 mg Ondansetron HCl (Zofran Injection) 4 mg IVPUSH Q6H PRN PRN Reason: NAUSEA AND/OR VOMITING Oxycodone HCl (Roxicodone -) 5 mg PO Q6H PRN PRN Reason: PAIN LEVEL 6-10 Last Admin: 04/13/18 17:03 Dose: 5 mg Oxycodone HCl (Oxycontin -) 10 mg PO BID [facility] Stop: 04/15/18 08:57 Last Admin: 04/14/18 09:22 Dose: 10 mg Oxycodone HCl (Roxicodone -) 10 mg PO Q3H PRN PRN Reason: PAIN LEVEL 6-10 Last Admin: 04/14/18 06:02 Dose: 10 mg Polyethylene Glycol (Miralax (For Daily Use) -) 17 gm PO BID [facility] Last Admin: 04/14/18 09:23 Dose: 17 gm GENERAL: Awake, alert, uncomfortable due to pain. Drain: appears dislodged HEAD: Normal with no signs of trauma. EARS, NOSE, THROAT:. Moist mucous membranes. LUNGS: Breath sounds equal, clear to auscultation bilaterally. No wheezes, and no crackles. No accessory muscle use. HEART: S1S2, regular ABDOMEN: Soft, nontender, not distended, normoactive bowel sounds, no guarding, no rebound, no masses. MUSCULOSKELETAL: Normal range of motion at all joints. No bony deformities or tenderness. UPPER EXTREMITIES: 2+ pulses, warm, well-perfused. No cyanosis. LOWER EXTREMITIES: warm, well-perfused. No calf tenderness. SKIN: Warm, dry, Laboratory Results - last 24 hr 04/14/18 04/14/18 05:30 05:30 WBC 9.7 RBC 3.53 L Hgb 11.3 L Hct 32.7 L MCV 92.5 MCH 31.9 MCHC 34.5 RDW 13.1 Plt Count 300 MPV 8.7 Absolute Neuts (auto) 5.9 Neutrophils % 60.8 Lymphocytes % 29.2 Monocytes % 7.4 Eosinophils % 2.3 Basophils % 0.3 Nucleated RBC % 0 Sodium 143 Potassium 3.7 Chloride 104 Carbon Dioxide 30 Anion Gap 9 BUN 11 Creatinine 0.8 Creat Clearance w eGFR > 60 Random Glucose 129 H Calcium 8.9 Phosphorus 3.8 D Magnesium 2.2 Total Bilirubin 0.6 AST 92 H ALT 78 Alkaline Phosphatase 61 Total Protein 6.9 Albumin 3.5 ASSESSMENT/PLAN: POD#4: L2-L5 laminectomies; L2-L5 facetectomies; L4-L5 PLIF; L2-S1 PISF; Stem cell harvest; Bone autograft; Bone allograft Lumbar rediculopathy HPL HIV Plan: Inform surgery that since drain appears dislodged, will remove Pain control O2 as needed VTE prophylaxis Incentive spirometry PT/OT/Rehab OOB PO as tolerated Strict I & O Zofran for nausea. [place] Critical care time spent in reviewing chart, evaluating patient and formulating plan - 36 minutes.
[2018-04-14 12:32] VITALS: BMI 29.3
--- NOTE | 2018-04-14 13:06 | PN ---
Physical Exam: SUBJECTIVE: Patient seen and examined resting in bed nad. afebrile and hemodynamically stable. no acute events overnight. still complians of hiccups. back pain is controlledwith PO analgesics. denies cp, sob, cough, f/c, le numbness or pain. Had a bm last night. OBJECTIVE: Vital Signs Period Temp Pulse Resp BP Sys/Encinas Pulse Ox Last 24 Hr 97.4 F-98.2 F 88-134 18-30 119-154/68-114 98-98 GENERAL: The patient is awake, alert, and fully oriented, in no acute distress. HEAD: Normal with no signs of trauma. EYES: PERRL, extraocular movements intact, sclera anicteric, conjunctiva clear. No ptosis. ENT: moist mucous membranes. NECK: supple. LUNGS: Breath sounds equal, clear to auscultation bilaterally HEART: Regular rate and rhythm, S1, S2 ABDOMEN: Soft, nontender, nondistended, normoactive bowel sounds, no guarding, no rebound, no masses. EXTREMITIES: 2+ pulses, warm, well-perfused, no edema. NEUROLOGICAL: Cranial nerves II through XII grossly intact. LE sensation intact PSYCH: Normal mood, normal affect. SKIN: Warm, dry. surgical incision on mid lumbar region intact, nonerythematous , nonedematous, no drainage. clean dressing applied. L paraspinal drain in place but appears to be partially out Laboratory Results - last 24 hr 04/14/18 04/14/18 05:30 05:30 WBC 9.7 RBC 3.53 L Hgb 11.3 L Hct 32.7 L MCV 92.5 MCH 31.9 MCHC 34.5 RDW 13.1 Plt Count 300 MPV 8.7 Absolute Neuts (auto) 5.9 Neutrophils % 60.8 Lymphocytes % 29.2 Monocytes % 7.4 Eosinophils % 2.3 Basophils % 0.3 Nucleated RBC % 0 Sodium 143 Potassium 3.7 Chloride 104 Carbon Dioxide 30 Anion Gap 9 BUN 11 Creatinine 0.8 Creat Clearance w eGFR > 60 Random Glucose 129 H Calcium 8.9 Phosphorus 3.8 D Magnesium 2.2 Total Bilirubin 0.6 AST 92 H ALT 78 Alkaline Phosphatase 61 Total Protein 6.9 Albumin 3.5 Active Medications Generic Name Dose Route Start Last Admin Trade Name Freq PRN Reason Stop Dose Admin Acetaminophen 650 mg 04/12/18 08:16 04/13/18 03:49 Tylenol - PO 650 mg Q4H PRN Administration PAIN LEVEL 1-5 Bisacodyl 10 mg 04/13/18 19:15 Dulcolax Suppository - RC PRN PRN CONSTIPATION Chlorpromazine HCl 25 mg 04/13/18 12:22 04/14/18 09:26 Thorazine - PO 25 mg Q8H PRN Administration hiccups Docusate Sodium 300 mg 04/13/18 22:00 Colace - PO HS [facility] Emtricitabine/Rilpivirine/Tenofovir 1 each 04/10/18 10:00 04/14/18 09:23 Complera - PO 1 each DAILY [facility] Administration Gabapentin 300 mg 04/09/18 22:00 04/14/18 09:22 Neurontin - PO 300 mg QID [facility] Administration Lorazepam 1 mg 04/11/18 10:53 04/12/18 07:49 Ativan - PO 1 mg BID PRN Administration Anxiety or Spasms Ondansetron HCl 4 mg 04/09/18 19:29 Zofran Injection IVPUSH Q6H PRN NAUSEA AND/OR VOMITING Oxycodone HCl 5 mg 04/11/18 10:53 04/13/18 17:03 Roxicodone - PO 5 mg Q6H PRN Administration PAIN LEVEL 6-10 Oxycodone HCl 10 mg 04/12/18 10:00 04/14/18 09:22 Oxycontin - PO 04/15/18 08:57 10 mg BID [facility] Administration Oxycodone HCl 10 mg 04/13/18 09:03 04/14/18 06:02 Roxicodone - PO 10 mg Q3H PRN Administration PAIN LEVEL 6-10 Polyethylene Glycol 17 gm 04/13/18 19:15 04/14/18 09:23 Miralax (For Daily Use) - PO 17 gm BID [facility] Administration ASSESSMENT/PLAN: Neuro -aao x 3 *Lumbar Radiculopathy POD 5 s/p L2-L5 laminectomies, L4-L5 PLIF, L2-S1 PISF -pain control with Valium 10 mg po q12H for muscle spasms, oxycodone 10, tylenol , gabapentin -contineu colace/miralax -Incentive Spirometry -PT -pulling the drain out due to minimal output (55cc yesterday and 10 cc overnight ) *Intractable hiccups -side effects of anesthesia vs opiates -Chlorpromazine 25 MG PO Q8H PRN HIV c/w HAART Complera (Emtricitabine, rilpivirine, tenofovir) FEN no ivf lytes stable soft diet xfer tele Problem List - Problems (1) Lumbar radiculopathy Code(s): M54.16 - RADICULOPATHY, LUMBAR REGION (2) HIV (human immunodeficiency virus infection) Code(s): B20 - HUMAN IMMUNODEFICIENCY VIRUS [HIV] DISEASE (3) Intractable hiccups Code(s): R06.6 - HICCOUGH Visit type - Emergency Visit Emergency Visit: Yes ED Registration Date: 04/09/18 Care time: The patient presented to the Emergency Department on the above date and was hospitalized for further evaluation of their emergent condition. - New Patient This patient is new to me today: No - Critical Care Critical Care patient: Yes Total Critical Care Time (in minutes): 35 Critical Care Statement: The care of this patient involved high complexity decision making to prevent further life threatening deterioration of the patient 's condition and/or to evaluate & treat vital organ system(s) failure or risk of failure. - Discharge Referral Referred to [facility] Med [facility] No
[2018-04-14] MEDS ORDERED: METOCLOPRAMIDE HCL 10 MG TABLET (FP) PO ONE (17:26)
[2018-04-14] MEDS: ACETAMINOPHEN 325 MG TABLET (FP) PO PRN ×2 (17:54→20:20)
[2018-04-14] MEDS ORDERED: ONDANSETRON 4 MG/2 ML VIAL IVPUSH PRN (18:10)
[2018-04-14] MEDS ORDERED: oxyCODONE HCL 5 MG TABLET PO PRN ×3 (18:10→20:55)
[2018-04-14] MEDS ORDERED: oxyCODONE HCL 20 MG SUSTAINED ACTING TABLET PO ONE (20:58)
--- NOTE | 2018-04-14 21:02 | PN ---
Progress Note (short form) - Note Progress Note: Pain Management Note Called to bedside to evaluate patient's pain. Patient states he has been in constant 10/10 pain despite receiving oral analgesics. He was taking 30mg oxycontin twice daily at home and oxycodone total 30 mg daily for breakthrough pain. In the hospital he has been given 10mg oxycontin. Will increase oxycontin to 30mg BID and oxycodone PRN 10 and 15mg for moderate and severe pain Q3H as well as add valium PRN for muscle spasm. Will reevaluate in the AM
[2018-04-14] MEDS: DOCUSATE SODIUM 100 MG CAPSULE (FP) PO SCH ×2 (21:19→21:22)
[2018-04-14] MEDS ORDERED: oxyCODONE HCL 10 MG SUSTAINED ACTING TABLET PO SCH ×2 (22:00)
[2018-04-14] MEDS: diazePAM 5 MG TABLET PO PRN (23:38)
[2018-04-15] MEDS: oxyCODONE HCL 5 MG TABLET PO PRN ×5 (01:48→19:55)
[2018-04-15 07:34] LABS: HEMATOCRIT 30.6 % (35.4-49); HEMOGLOBIN 10.6 GM/dL (11.7-16.9); MCH 31.8 pg (25.7-33.7); MCHC 34.6 g/dl (32.0-35.9); MEAN CELL VOLUME 91.9 fl (80-96); MEAN PLT VOLUME 8.7 fl (7.5-11.1); PLATELET COUNT 314 K/MM3 (134-434); RBC 3.33 M/mm3 (4.00-5.60); RDW 13.4 % (11.9-15.9); WHITE BLOOD COUNT 10.3 K/mm3 (4.0-10.0)
[2018-04-15] MEDS: diazePAM 5 MG TABLET PO PRN ×2 (07:44→12:28)
[2018-04-15] MEDS: ACETAMINOPHEN 325 MG TABLET (FP) PO PRN ×2 (07:44→16:39)
[2018-04-15 08:19] LABS: CHLORIDE 102 mmol/L (98-107); POTASSIUM 3.8 mmol/L (3.5-5.1); SODIUM 141 mmol/L (136-145)
--- NOTE | 2018-04-15 08:20 | PN ---
Physical Exam: SUBJECTIVE: Patient seen and examined. Reported no pain relief overnight. Was seen by anesthesiologist twice but patient does not feel PO meds provide any type of relief even at adjusted higher doses. Still with hiccups. OBJECTIVE: Vital Signs Period Temp Pulse Resp BP Sys/Encinas Pulse Ox Last 24 Hr 97.7 F-98.7 F 81-120 20-26 122-146/68-85 95-98 GENERAL: The patient is awake, alert, and fully oriented, in moderate distress secondary to pain. Hiccups, worse with speaking. LUNGS: Breath sounds equal, clear to auscultation bilaterally, no wheezes, no crackles, no accessory muscle use. HEART: Regular rate and rhythm, S1, S2 ABDOMEN: Soft, nontender, nondistended MUSCULOSKELETAL: Surgical dressing entire length of spine c/d/i; no surrounding erythema or edema EXTREMITIES: 2+ pulses, warm, well-perfused, no edema. NEUROLOGICAL: Cranial nerves II through XII grossly intact. Normal speech. Laboratory Results - last 24 hr 04/15/18 05:45 WBC 10.3 H RBC 3.33 L Hgb 10.6 L Hct 30.6 L MCV 91.9 MCH 31.8 MCHC 34.6 RDW 13.4 Plt Count 314 MPV 8.7 Active Medications Generic Name Dose Route Start Last Admin Trade Name Freq PRN Reason Stop Dose Admin Acetaminophen 650 mg 04/14/18 18:10 04/15/18 07:44 Tylenol - PO 650 mg Q4H PRN Administration PAIN LEVEL 1 - 3 Bisacodyl 10 mg 04/13/18 19:15 Dulcolax Suppository - RC PRN PRN CONSTIPATION Diazepam 5 mg 04/14/18 20:57 04/15/18 07:44 Valium - PO 04/17/18 20:57 5 mg Q4H PRN Administration MUSCLE SPASMS Docusate Sodium 300 mg 04/13/18 22:00 04/14/18 21:22 Colace - PO Not Given HS MARINO Emtricitabine/Rilpivirine/Tenofovir 1 each 04/15/18 10:00 Complera - PO DAILY [facility] Gabapentin 300 mg 04/14/18 22:00 04/14/18 21:20 Neurontin - PO 300 mg QID [facility] Administration Ondansetron HCl 4 mg 04/14/18 18:10 Zofran Injection IVPUSH Q6H PRN NAUSEA AND/OR VOMITING Oxycodone HCl 10 mg 04/14/18 20:55 Roxicodone - PO Q3H PRN PAIN LEVEL 4 - 6 Oxycodone HCl 15 mg 04/14/18 20:56 04/15/18 07:38 Roxicodone - PO 15 mg Q3H PRN Administration PAIN LEVEL 7 - 10 Oxycodone HCl 30 mg 04/14/18 22:00 04/14/18 21:20 Oxycontin - PO 04/15/18 08:57 Not Given BID MARINO Polyethylene Glycol 17 gm 04/13/18 19:15 04/14/18 21:20 Miralax (For Daily Use) - PO 17 gm BID [facility]INO Administration ASSESSMENT/PLAN: 52 year-old male with PMH significant for HIV and lumbar discogenic radiculopathy, s/p surgery POD #6. Lumbar discogenic radiculopathy --s/p L2-L5 laminectomies, L2-L5 facetectomies, L4-L5 PLIF, L2-S1 PISF, stem cell harvest, bone autograft, bone allograft, NGUYEN L5-S1, inspection of fusion mass --pain remains major issue, complains of constant 10/10 pain on PO meds despite increased dosing started last night; spoke with anesthesiology, do not want to go back to IV meds and very reluctant to prescribe higher PO amounts; will get pain management consult --continue bowel regimen Hiccups --chart review shows first documented hiccups was on POD #3 and patient had been started on diazepam/lorazepam in the first days after surgery; check of ISTOP shows patient had not been on benzos pre-op --was given thorazine POD #3-->5 but to no effect --d/c'd diazepam today as possible medication culprit for hiccups; also d/c' d Zofran --start Protonix PO BID --start Reglan TID --if no relief, will get GI/neuro consult HIV --continue Complera FEN Fluids: PO intake adequate Electrolytes: replete as indicated Nutrition: soft diet DVT prophylaxis: mechanical DVT prophylaxis only per surgery Physical therapy Dispo: continues to require inpatient care. Full Code. Visit type - Emergency Visit Emergency Visit: Yes ED Registration Date: 04/09/18 Care time: The patient presented to the Emergency Department on the above date and was hospitalized for further evaluation of their emergent condition. - New Patient This patient is new to me today: No - Critical Care Critical Care patient: No
[2018-04-15 08:26] LABS: ANION GAP 9 (8-16); BLOOD UREA NITROGEN 11 mg/dL (7-18); CALCIUM 8.8 mg/dL (8.5-10.1); CO2 30 mmol/L (21-32); CREATININE 0.7 mg/dL (0.7-1.3); GLUCOSE,RANDOM 114 mg/dL (74-106); PHOSPHOROUS 3.7 mg/dL (2.5-4.9)
[2018-04-15] MEDS ORDERED: PT OWN MED DRAWER 7, Y5N ONE (09:10)
[2018-04-15] MEDS: GABAPENTIN 300 MG CAPSULE (FP) PO SCH ×4 (09:13→22:27)
[2018-04-15] MEDS: POLYETHYLENE GLYCOL 3350 119 GM BTL PO SCH ×2 (09:15→22:29)
[2018-04-15] MEDS: EMTRICITAB/RILPIVIRINE/TENOFOV 1 EACH TABLET PO SCH (09:15)
[2018-04-15] MEDS: oxyCODONE HCL 10 MG SUSTAINED ACTING TABLET PO SCH ×2 (11:02→22:27)
[2018-04-15] MEDS ORDERED: morphine CARPU-JECT 4 MG/1 ML DISP.SYRIN IVPUSH ONE (11:15)
[2018-04-15] MEDS ORDERED: morphine SULFATE 4 MG/ML VIAL IVPUSH ONE (11:15)
[2018-04-15] MEDS ORDERED: PHENOL 177 ML SPRAY BOTTLE MM PRN (14:19)
[2018-04-15] MEDS: METOCLOPRAMIDE HCL 10 MG TABLET (FP) PO SCH (17:39)
[2018-04-15] MEDS: DOCUSATE SODIUM 100 MG CAPSULE (FP) PO SCH (22:26)
[2018-04-15] MEDS: PANTOPRAZOLE 40 MG TABLET (FP) PO SCH (23:51)
[2018-04-16] MEDS: oxyCODONE HCL 5 MG TABLET PO PRN ×3 (04:24→17:09)
[2018-04-16] MEDS: METOCLOPRAMIDE HCL 10 MG TABLET (FP) PO SCH ×3 (06:40→17:04)
--- NOTE | 2018-04-16 09:15 | PN ---
Progress Note (short form) - Note Progress Note: POD#8 Pain management problems precluding his ability to mobilize C/O incisional lumbar sacral pain. No leg pain. Vitals as per chart and reviewed [facility] Stable RESP Clear ABD Soft non tender Passing flatus Wound Dry New dressing applied NEURO All functioning well PLAN For pain mx consult For stat Toradol PT Mobilize FWBAT
[2018-04-16] MEDS ORDERED: KETOROLAC TROMETHAMINE 30 MG/1 ML VIAL IVPUSH PRN (09:16)
[2018-04-16] MEDS: GABAPENTIN 300 MG CAPSULE (FP) PO SCH ×4 (10:13→21:21)
[2018-04-16] MEDS: PANTOPRAZOLE 40 MG TABLET (FP) PO SCH ×2 (10:13→21:23)
[2018-04-16] MEDS: oxyCODONE HCL 10 MG SUSTAINED ACTING TABLET PO SCH ×2 (10:13→21:21)
[2018-04-16] MEDS: EMTRICITAB/RILPIVIRINE/TENOFOV 1 EACH TABLET PO SCH (10:14)
[2018-04-16] MEDS: POLYETHYLENE GLYCOL 3350 119 GM BTL PO SCH ×2 (10:14→21:29)
--- NOTE | 2018-04-16 10:51 | PN ---
Physical Exam: SUBJECTIVE: Patient seen and examined, 06/18 pain. Declined PT today. OBJECTIVE: Vital Signs Period Temp Pulse Resp BP Sys/Encinas Pulse Ox Last 24 Hr 97.5 F-98.8 F 71-98 20-24 125-166/60-89 96 GENERAL: The patient is awake, alert, and fully oriented, in moderate distress secondary to pain. Hiccups, worse with speaking. LUNGS: Breath sounds equal, clear to auscultation bilaterally, no wheezes, no crackles, no accessory muscle use. HEART: Regular rate and rhythm, S1, S2 ABDOMEN: Soft, nontender, nondistended MUSCULOSKELETAL: Surgical dressing entire length of spine c/d/i; no surrounding erythema or edema EXTREMITIES: 2+ pulses, warm, well-perfused, no edema. NEUROLOGICAL: Cranial nerves II through XII grossly intact. Normal speech. Active Medications Generic Name Dose Route Start Last Admin Trade Name Freq PRN Reason Stop Dose Admin Acetaminophen 650 mg 04/14/18 18:10 04/15/18 16:39 Tylenol - PO 650 mg Q4H PRN Administration PAIN LEVEL 1 - 3 Bisacodyl 10 mg 04/13/18 19:15 Dulcolax Suppository - RC PRN PRN CONSTIPATION Docusate Sodium 300 mg 04/13/18 22:00 04/15/18 22:26 Colace - PO 300 mg HS [facility] Administration Emtricitabine/Rilpivirine/Tenofovir 1 each 04/15/18 10:00 04/16/18 10:14 Complera - PO 1 each DAILY [facility] Administration Gabapentin 300 mg 04/14/18 22:00 04/16/18 10:13 Neurontin - PO 300 mg QID [facility] Administration Ketorolac Tromethamine 30 mg 04/16/18 09:16 04/16/18 10:13 Toradol Injection - IVPUSH 30 mg Q8H-IV PRN Administration PAIN LEVEL 6-10 Metoclopramide HCl 10 mg 04/15/18 17:45 04/16/18 10:13 Reglan - PO 10 mg TIDAC [facility] Administration Oxycodone HCl 10 mg 04/14/18 20:55 04/15/18 14:05 Roxicodone - PO 10 mg Q3H PRN Administration PAIN LEVEL 4 - 6 Oxycodone HCl 15 mg 04/14/18 20:56 04/16/18 08:25 Roxicodone - PO 15 mg Q3H PRN Administration PAIN LEVEL 7 - 10 Oxycodone HCl 30 mg 04/15/18 10:45 04/16/18 10:13 Oxycontin - PO 30 mg BID [facility] Administration Pantoprazole Sodium 40 mg 04/15/18 23:30 04/16/18 10:13 Protonix - PO 40 mg BID [facility] Administration Phenol/Menthol 1 spray 04/15/18 14:19 04/15/18 15:48 Chloraseptic - MM 1 spray Q6H PRN Administration SORE THROAT Polyethylene Glycol 17 gm 04/13/18 19:15 04/16/18 10:14 Miralax (For Daily Use) - PO Not Given BID [facility] ASSESSMENT/PLAN 52 year-old male with PMH significant for HIV and lumbar discogenic radiculopathy, s/p surgery POD #7. Lumbar discogenic radiculopathy --s/p L2-L5 laminectomies, L2-L5 facetectomies, L4-L5 PLIF, L2-S1 PISF, stem cell harvest, bone autograft, bone allograft, NGUYEN L5-S1, inspection of fusion mass --pain remains major issue, Dr. Feliz aware, pain managment consult pending --continue bowel regimen Hiccups --chart review shows first documented hiccups was on POD #3 and patient had been started on diazepam/lorazepam in the first days after surgery; check of ISTOP shows patient had not been on benzos pre-op --was given thorazine POD #3-->5 but to no effect --d/c'd diazepam as possible medication culprit for hiccups; also d/c'd Zofran --continue Reglan TID, Protonix PO BID, and resume baclofen which interventions may ameliorate hiccups; if persist, will get GI consult HIV --continue Complera FEN Fluids: PO intake adequate Electrolytes: replete as indicated Nutrition: soft diet DVT prophylaxis: mechanical DVT prophylaxis only per surgery Physical therapy Dispo: continues to require inpatient care. Full Code. Visit type - Emergency Visit Emergency Visit: Yes ED Registration Date: 04/09/18 Care time: The patient presented to the Emergency Department on the above date and was hospitalized for further evaluation of their emergent condition. - New Patient This patient is new to me today: No - Critical Care Critical Care patient: No
--- NOTE | 2018-04-16 18:46 | CONSULT ---
Consult Consult Specialty:: pain management Referred by:: primary team Reason for Consultation:: back pain - History of Present Illness Chief Complaint: back pain History of Present Illness: s/p L2-L5 laminectomies, L4-L5 PLIF, L2-S1 PISf Patient continues to have pain despite being on current pain meds. Pain score 9/10 PMH: HIV, hld - Alcohol/Substance Use Hx Alcohol Use: No - Smoking History Smoking history: Never smoked Have you smoked in the past 12 months: No Home Medications - Allergies Allergies/Adverse Reactions: Allergies Allergy/AdvReac Type Severity Reaction Status Date / Time No Known Allergies Allergy Verified 04/03/18 14:57 - Home Medications Home Medications: Ambulatory Orders Baclofen 10 mg PO DAILY 04/03/18 Diclofenac Sodium [Diclo Gel] 1 each TP DAILY PRN 04/03/18 Emtricita/Rilpivirine/Tenof Df [Complera Tablet] 1 each PO DAILY 04/03/18 Gabapentin 300 mg PO QID 04/03/18 Gemfibrozil [Lopid] 600 mg PO BID 04/03/18 Oxycodone HCl [Oxycontin] 30 mg PO Q12H 04/03/18 Oxycodone HCl/Acetaminophen [Percocet 10-325 mg Tablet] 1 each PO TID 04/03/18 Physical Exam Vital Signs: Vital Signs Temperature 98.6 F 04/16/18 17:00 Pulse Rate 77 04/16/18 17:00 Respiratory Rate 19 04/16/18 17:00 Blood Pressure 136/70 04/16/18 17:00 O2 Sat by Pulse Oximetry (%) 96 04/16/18 11:31 Musculoskeletal: Yes: Back Pain Labs: CBC, BMP 04/15/18 05:45 04/15/18 05:45 Assessment/Plan Status post lumbar spinal fusion Chronic opioid user 1. Continue oxycontin 30mg PO Q12h 2. continue oxycodone 15m prn pain 3. increase gabapentin 600mg po q8h 4. encourage tylenol 5. restart his daily baclofen to prevent baclofen withdrawal
[2018-04-16] MEDS: BACLOFEN 10 MG TABLET (FP) PO SCH (21:20)
[2018-04-16] MEDS: DOCUSATE SODIUM 100 MG CAPSULE (FP) PO SCH (21:20)
[2018-04-16] MEDS: ACETAMINOPHEN 325 MG TABLET (FP) PO PRN (23:50)
[2018-04-17] MEDS: oxyCODONE HCL 5 MG TABLET PO PRN ×3 (01:39→16:40)
[2018-04-17 06:25] LABS: BASO % 0.4 % (0-2.0); EOS % 2.6 % (0-4.5); HEMATOCRIT 31.5 % (35.4-49); HEMOGLOBIN 10.8 GM/dL (11.7-16.9); LYMPH % 25.8 % (8-40); MCH 31.7 pg (25.7-33.7); MCHC 34.3 g/dl (32.0-35.9); MEAN CELL VOLUME 92.3 fl (80-96); MEAN PLT VOLUME 8.2 fl (7.5-11.1); MONO % 6.7 % (3.8-10.2); NEUT % 64.5 % (42.8-82.8); PLATELET COUNT 389 K/MM3 (134-434); RBC 3.41 M/mm3 (4.00-5.60); RDW 13.6 % (11.9-15.9); WHITE BLOOD COUNT 12.2 K/mm3 (4.0-10.0)
[2018-04-17] MEDS: METOCLOPRAMIDE HCL 10 MG TABLET (FP) PO SCH ×3 (06:31→16:40)
[2018-04-17] MEDS: GABAPENTIN 300 MG CAPSULE (FP) PO SCH ×3 (06:31→21:46)
[2018-04-17 07:15] LABS: ALBUMIN 3.5 g/dl (3.4-5.0); ANION GAP 7 (8-16); BLOOD UREA NITROGEN 10 mg/dL (7-18); CHLORIDE 103 mmol/L (98-107); CO2 32 mmol/L (21-32); GLUCOSE,RANDOM 113 mg/dL (74-106); POTASSIUM 4.3 mmol/L (3.5-5.1); SGOT/AST 130 U/L (15-37); SGPT/ALT 109 U/L (12-78); SODIUM 142 mmol/L (136-145)
[2018-04-17 07:22] LABS: ALK PHOS 69 U/L (45-117); BILIRUBIN,TOTAL 0.5 mg/dL (0.2-1.0); CALCIUM 9.1 mg/dL (8.5-10.1); CREATININE 0.7 mg/dL (0.7-1.3); MAGNESIUM 2.4 mg/dL (1.8-2.4); TOT PROT 6.9 g/dl (6.4-8.2)
--- NOTE | 2018-04-17 07:42 | PN ---
Physical Exam: SUBJECTIVE: Patient seen and examined oob to chair. Slept better last night and this morning was relatively pain free. Pain just started again around midday. Also got ~12 hours relief from hiccups. Hiccups restarted at about the same time the pain recurred. OBJECTIVE: Vital Signs Period Temp Pulse Resp BP Sys/Encinas Pulse Ox Last 24 Hr 98 F-98.9 F 60-87 19-20 135-157/66-86 96 GENERAL: The patient is awake, alert, and fully oriented, in moderate distress secondary to pain. Hiccups, worse with speaking. LUNGS: Breath sounds equal, clear to auscultation bilaterally, no wheezes, no crackles, no accessory muscle use. HEART: Regular rate and rhythm, S1, S2 ABDOMEN: Soft, nontender, nondistended MUSCULOSKELETAL: Surgical dressing entire length of spine c/d/i; no surrounding erythema or edema EXTREMITIES: 2+ pulses, warm, well-perfused, no edema. NEUROLOGICAL: Cranial nerves II through XII grossly intact. Normal speech. Laboratory Results - last 24 hr 04/17/18 05:30 WBC 12.2 H RBC 3.41 L Hgb 10.8 L Hct 31.5 L MCV 92.3 MCH 31.7 MCHC 34.3 RDW 13.6 Plt Count 389 D MPV 8.2 Absolute Neuts (auto) 7.9 Neutrophils % 64.5 Lymphocytes % 25.8 Monocytes % 6.7 Eosinophils % 2.6 Basophils % 0.4 Nucleated RBC % 0 Active Medications Generic Name Dose Route Start Last Admin Trade Name Freq PRN Reason Stop Dose Admin Acetaminophen 650 mg 04/14/18 18:10 04/16/18 23:50 Tylenol - PO 650 mg Q4H PRN Administration PAIN LEVEL 1 - 3 Baclofen 10 mg 04/16/18 18:45 04/16/18 21:20 Lioresal - PO 10 mg DAILY MARINO Administration Bisacodyl 10 mg 04/13/18 19:15 Dulcolax Suppository - RC PRN PRN CONSTIPATION Docusate Sodium 300 mg 04/13/18 22:00 04/16/18 21:20 Colace - PO 300 mg HS MARINO Administration Emtricitabine/Rilpivirine/Tenofovir 1 each 04/15/18 10:00 04/16/18 10:14 Complera - PO 1 each DAILY MARINO Administration Gabapentin 600 mg 04/16/18 22:00 04/17/18 06:31 Neurontin - PO 600 mg TID MARINO Administration Ketorolac Tromethamine 30 mg 04/16/18 09:16 04/16/18 10:13 Toradol Injection - IVPUSH 30 mg Q8H-IV PRN Administration PAIN LEVEL 6-10 Metoclopramide HCl 10 mg 04/15/18 17:45 04/17/18 06:31 Reglan - PO 10 mg TIDAC MARINO Administration Oxycodone HCl 10 mg 04/14/18 20:55 04/15/18 14:05 Roxicodone - PO 10 mg Q3H PRN Administration PAIN LEVEL 4 - 6 Oxycodone HCl 15 mg 04/14/18 20:56 04/17/18 01:39 Roxicodone - PO 15 mg Q3H PRN Administration PAIN LEVEL 7 - 10 Oxycodone HCl 30 mg 04/15/18 10:45 04/16/18 21:21 Oxycontin - PO 30 mg BID MARINO Administration Pantoprazole Sodium 40 mg 04/15/18 23:30 04/16/18 21:23 Protonix - PO 40 mg BID MARINO Administration Phenol/Menthol 1 spray 04/15/18 14:19 04/15/18 15:48 Chloraseptic - MM 1 spray Q6H PRN Administration SORE THROAT Polyethylene Glycol 17 gm 04/13/18 19:15 04/16/18 21:29 Miralax (For Daily Use) - PO 17 gm BID MARINO Administration ASSESSMENT/PLAN 52 year-old male with PMH significant for HIV and lumbar discogenic radiculopathy, s/p surgery POD #8. Lumbar discogenic radiculopathy --s/p L2-L5 laminectomies, L2-L5 facetectomies, L4-L5 PLIF, L2-S1 PISF, stem cell harvest, bone autograft, bone allograft, NGUYEN L5-S1, inspection of fusion mass --pain improved on regimen started yesterday: oxycontin 30mg PO Q12h, oxycodone 15m PRN pain, gabapentin 600mg po q8h; tylenol; baclofen 10mg daily --continue bowel regimen Hiccups --chart review shows first documented hiccups was on POD #3 and patient had been started on diazepam/lorazepam in the first days after surgery; check of ISTOP shows patient had not been on benzos pre-op --was given thorazine POD #3 to 5, but to no effect --d/c'd diazepam as possible medication culprit for hiccups; also d/c'd Zofran --got 12 hours of relief of hiccups which restarted when pain recurred this afternoon (stress component??); continue Reglan, Protonix, and baclofen HIV --continue Complera FEN Fluids: PO intake adequate Electrolytes: replete as indicated Nutrition: soft diet DVT prophylaxis: mechanical DVT prophylaxis only per surgery Physical therapy Dispo: continues to require inpatient care. Full Code. Visit type - Emergency Visit Emergency Visit: Yes ED Registration Date: 04/09/18 Care time: The patient presented to the Emergency Department on the above date and was hospitalized for further evaluation of their emergent condition. - New Patient This patient is new to me today: No - Critical Care Critical Care patient: No
[2018-04-17] MEDS ORDERED: PT OWN MED DRAWER 7, Y5N ONE (09:52)
[2018-04-17] MEDS: PANTOPRAZOLE 40 MG TABLET (FP) PO SCH ×2 (09:58→21:47)
[2018-04-17] MEDS: BACLOFEN 10 MG TABLET (FP) PO SCH (09:58)
[2018-04-17] MEDS: POLYETHYLENE GLYCOL 3350 119 GM BTL PO SCH ×2 (09:58→21:46)
[2018-04-17] MEDS: EMTRICITAB/RILPIVIRINE/TENOFOV 1 EACH TABLET PO SCH (09:59)
[2018-04-17] MEDS: oxyCODONE HCL 10 MG SUSTAINED ACTING TABLET PO SCH ×2 (09:59→21:46)
[2018-04-17] MEDS: ACETAMINOPHEN 325 MG TABLET (FP) PO PRN (13:11)
--- NOTE | 2018-04-17 16:53 | PATH ---
Surgical Pathology Report Patient Name: REYNALDO SEPULVEDA Med. Rec. #: [id number] /Age/Gender: 1965 (Age: 52) / M Account: [id number] Location: 4 W TELEMETRY U Taken: 04/09/2018 Received: 04/10/2018 Reported: 04/17/2018 Physicians: Kem Feliz M.D. Specimen(s) Received OLD HARDWARE Clinical History Spinal stenosis Final Diagnosis HARDWARE, OLD, L1-S1 LAMINECTOMY, MULTILEVEL POSTERIOR LUMBAR INTERBODY FUSION: SURGICAL HARDWARE. MACROSCOPIC DIAGNOSIS. Electronically Signed Leda Jefferson M.D. Gross Description Received fresh labeled "old hardware," are 2 robin metallic rods averaging 4.0 cm in length and 3 robin metallic screws ranging from 4.8-6.0 cm in length. No soft tissue is present. No sections are submitted, gross only. /04/10/2018 saudi04/10/2018
[2018-04-17] MEDS: DOCUSATE SODIUM 100 MG CAPSULE (FP) PO SCH (21:45)
[2018-04-18] MEDS: ACETAMINOPHEN 325 MG TABLET (FP) PO PRN (01:18)
[2018-04-18] MEDS: oxyCODONE HCL 5 MG TABLET PO PRN ×4 (03:43→20:48)
[2018-04-18] MEDS: METOCLOPRAMIDE HCL 10 MG TABLET (FP) PO SCH ×3 (06:31→17:43)
[2018-04-18] MEDS: GABAPENTIN 300 MG CAPSULE (FP) PO SCH ×3 (06:31→21:01)
[2018-04-18] MEDS ORDERED: PT OWN MED DRAWER 7, Y5N ONE (09:09)
[2018-04-18] MEDS: EMTRICITAB/RILPIVIRINE/TENOFOV 1 EACH TABLET PO SCH (09:58)
[2018-04-18] MEDS: PANTOPRAZOLE 40 MG TABLET (FP) PO SCH ×2 (09:58→21:02)
[2018-04-18] MEDS: BACLOFEN 10 MG TABLET (FP) PO SCH (09:59)
[2018-04-18] MEDS: oxyCODONE HCL 10 MG SUSTAINED ACTING TABLET PO SCH ×2 (09:59→21:01)
[2018-04-18] MEDS: POLYETHYLENE GLYCOL 3350 119 GM BTL PO SCH ×2 (09:59→21:02)
--- NOTE | 2018-04-18 14:38 | DS ---
Physical Exam: SUBJECTIVE: Patient seen and examined at bedside. Feels much better. Pain is very well under control and hiccups have stopped. Walked with PT today. OBJECTIVE: Vital Signs Period Temp Pulse Resp BP Sys/Encinas Pulse Ox Last 24 Hr 97.8 F-98.8 F 72-93 18-20 132-153/74-88 96 PHYSICAL EXAM GENERAL: The patient is awake, alert, and fully oriented, in moderate distress secondary to pain. Hiccups, worse with speaking. LUNGS: Breath sounds equal, clear to auscultation bilaterally, no wheezes, no crackles, no accessory muscle use. HEART: Regular rate and rhythm, S1, S2 ABDOMEN: Soft, nontender, nondistended MUSCULOSKELETAL: Surgical dressing entire length of spine c/d/i; no surrounding erythema or edema EXTREMITIES: 2+ pulses, warm, well-perfused, no edema. NEUROLOGICAL: Cranial nerves II through XII grossly intact. Normal speech. LABS CBCD WBC 12.2 K/mm3 (4.0-10.0) H 04/17/18 05:30 RBC 3.41 M/mm3 (4.00-5.60) L 04/17/18 05:30 Hgb 10.8 GM/dL (11.7-16.9) L 04/17/18 05:30 Hct 31.5 % (35.4-49) L 04/17/18 05:30 MCV 92.3 fl (80-96) 04/17/18 05:30 MCHC 34.3 g/dl (32.0-35.9) 04/17/18 05:30 RDW 13.6 % (11.9-15.9) 04/17/18 05:30 Plt Count 389 K/MM3 (134-434) D 04/17/18 05:30 MPV 8.2 fl (7.5-11.1) 04/17/18 05:30 CMP Sodium 142 mmol/L (136-145) 04/17/18 05:30 Potassium 4.3 mmol/L (3.5-5.1) 04/17/18 05:30 Chloride 103 mmol/L (98-107) 04/17/18 05:30 Carbon Dioxide 32 mmol/L (21-32) 04/17/18 05:30 Anion Gap 7 (8-16) L 04/17/18 05:30 BUN 10 mg/dL (7-18) 04/17/18 05:30 Creatinine 0.7 mg/dL (0.7-1.3) 04/17/18 05:30 Creat Clearance w eGFR > 60 (>60) 04/17/18 05:30 Calcium 9.1 mg/dL (8.5-10.1) 04/17/18 05:30 Total Bilirubin 0.5 mg/dL (0.2-1.0) 04/17/18 05:30 AST 130 U/L (15-37) H D 04/17/18 05:30 ALT 109 U/L (12-78) H D 04/17/18 05:30 Alkaline Phosphatase 69 U/L (45-117) 04/17/18 05:30 Total Protein 6.9 g/dl (6.4-8.2) 04/17/18 05:30 Albumin 3.5 g/dl (3.4-5.0) 04/17/18 05:30 HOSPITAL COURSE: Date of Admission:04/09/18 Date of Discharge: 04/18/18 52 year-old male with PMH significant for HIV and lumbar discogenic radiculopathy, s/p surgery POD #9. Lumbar discogenic radiculopathy --s/p L2-L5 laminectomies, L2-L5 facetectomies, L4-L5 PLIF, L2-S1 PISF, stem cell harvest, bone autograft, bone allograft, NGUYEN L5-S1, inspection of fusion mass --post-op course was complicated by intractable pain, now improved and well- controlled with PO meds Hiccups --first documented hiccups was on POD #3 and patient had been started on diazepam/lorazepam in the first days after surgery; check of ISTOP showed patient had not been on benzos pre-op --was given thorazine POD #3 to #5, but to no effect --d/c'd diazepam as possible medication culprit for hiccups; also d/c'd Zofran; started Reglan, protonix, and baclofen. After 24-36 hours on this regimen hiccups stopped; difficult to say which intervention was most effective HIV --continued Complera Minutes to complete discharge: 35 Discharge Summary Reason For Visit: SPINAL STENOSIS, LUMBAR REGION WITHOUT NEUROGENIC Current Active Problems HIV (human immunodeficiency virus infection) (Acute) Intractable hiccups (Acute) Lumbar radiculopathy (Acute) - Instructions Referrals: Jalen Feliz MD [Staff Physician] - 1 Week Disposition: HOME - Home Medications Comprehensive Discharge Medication List: Ambulatory Orders Diclofenac Sodium [Diclo Gel] 1 each TP DAILY PRN 04/03/18 Emtricita/Rilpivirine/Tenof Df [Complera Tablet] 1 each PO DAILY 04/03/18 Gemfibrozil [Lopid] 600 mg PO BID 04/03/18 Baclofen 10 mg PO DAILY #30 tablet 04/18/18 Baclofen [Lioresal -] 10 mg PO DAILY #30 tablet 04/18/18 Docusate Sodium [Colace -] 300 mg PO HS #30 capsule 04/18/18 Gabapentin [Neurontin -] 600 mg PO TID #180 capsule 04/18/18 Metoclopramide HCl [Reglan -] 10 mg PO TIDAC #90 tablet 04/18/18 Oxycodone HCl [Oxycontin] 30 mg PO Q12H #60 tab.er.12h MDD 2 04/18/18 Pantoprazole Sodium [Protonix -] 40 mg PO BID #60 tablet.ec 04/18/18 Polyethylene Glycol 3350 [Miralax 119 gm Btl -] 17 gm PO BID #1 bottle 04/18/18 oxyCODONE HCL [Roxicodone -] 10 mg PO Q6H PRN #40 tablet MDD 4 04/18/18 oxyCODONE SR [Oxycontin] 30 mg PO BID #60 tab.er.12h MDD 2 04/18/18 This patient is new to me today: No Emergency Visit: Yes ED Registration Date: 04/09/18 Care time: The patient presented to the Emergency Department on the above date and was hospitalized for further evaluation of their emergent condition. Critical Care patient: No - Discharge Referral Referred to [facility] Med P.C.: No
[2018-04-18] MEDS: DOCUSATE SODIUM 100 MG CAPSULE (FP) PO SCH (21:02)
[2018-04-19] MEDS: GABAPENTIN 300 MG CAPSULE (FP) PO SCH ×2 (06:11→13:28)
[2018-04-19] MEDS: METOCLOPRAMIDE HCL 10 MG TABLET (FP) PO SCH ×3 (06:11→17:02)
[2018-04-19] MEDS: oxyCODONE HCL 5 MG TABLET PO PRN ×3 (06:11→13:26)
[2018-04-19] MEDS ORDERED: PT OWN MED DRAWER 7, Y5N ONE (10:19)
[2018-04-19] MEDS: BACLOFEN 10 MG TABLET (FP) PO SCH (10:23)
[2018-04-19] MEDS: oxyCODONE HCL 10 MG SUSTAINED ACTING TABLET PO SCH (10:24)
[2018-04-19] MEDS: POLYETHYLENE GLYCOL 3350 119 GM BTL PO SCH (10:24)
[2018-04-19] MEDS: PANTOPRAZOLE 40 MG TABLET (FP) PO SCH (10:25)
[2018-04-19] MEDS: EMTRICITAB/RILPIVIRINE/TENOFOV 1 EACH TABLET PO SCH (10:25)
--- NOTE | 2018-04-19 14:30 | PN ---
Physical Exam: SUBJECTIVE: Patient seen and examined at the bedside. Patient feels well, looks well, reports that his pain is controlled. Not constipated. Offers no complaints OBJECTIVE: Patient to follow up with Dr. Feliz tomorrow for post surgery follow up Walked 125 feet with PT yesterday Vital Signs Period Temp Pulse Resp BP Sys/Encinas Pulse Ox Last 24 Hr 97.8 F-98.6 F 70-84 20-20 111-133/75-86 GENERAL: The patient is awake, alert, and fully oriented, in no acute distress. HEAD: Normal with no signs of trauma. EYES: PERRL, extraocular movements intact, sclera anicteric, conjunctiva clear. No ptosis. ENT: Ears normal, nares patent, oropharynx clear without exudates, moist mucous membranes. NECK: Trachea midline, full range of motion, supple. LUNGS: Breath sounds equal, clear to auscultation bilaterally, no wheezes, diminished at the bases, incentive spirometer HEART: Regular rate and rhythm ABDOMEN: Soft, nontender, nondistended, normoactive bowel sounds, no guarding, no rebound, no hepatosplenomegaly, no masses. EXTREMITIES: 2+ pulses, warm, well-perfused, no edema. NEUROLOGICAL: Normal speech, gait not observed. PSYCH: Normal mood, normal affect. SKIN: Warm, dry, normal turgor, no rashes or lesions noted Active Medications Generic Name Dose Route Start Last Admin Trade Name Freq PRN Reason Stop Dose Admin Acetaminophen 650 mg 04/14/18 18:10 04/18/18 01:18 Tylenol - PO 650 mg Q4H PRN Administration PAIN LEVEL 1 - 3 Baclofen 10 mg 04/16/18 18:45 04/19/18 10:23 Lioresal - PO 10 mg DAILY MARINO Administration Bisacodyl 10 mg 04/13/18 19:15 Dulcolax Suppository - RC PRN PRN CONSTIPATION Docusate Sodium 300 mg 04/13/18 22:00 04/18/18 21:02 Colace - PO 300 mg HS MARINO Administration Emtricitabine/Rilpivirine/Tenofovir 1 each 04/15/18 10:00 04/19/18 10:25 Complera - PO 1 each DAILY MARINO Administration Gabapentin 600 mg 04/16/18 22:00 04/19/18 13:28 Neurontin - PO 600 mg TID MARINO Administration Ketorolac Tromethamine 30 mg 04/16/18 09:16 04/16/18 10:13 Toradol Injection - IVPUSH 30 mg Q8H-IV PRN Administration PAIN LEVEL 6-10 Metoclopramide HCl 10 mg 04/15/18 17:45 04/19/18 11:52 Reglan - PO 10 mg TIDAC MARINO Administration Oxycodone HCl 15 mg 04/14/18 20:56 04/19/18 13:26 Roxicodone - PO 15 mg Q3H PRN Administration PAIN LEVEL 7 - 10 Oxycodone HCl 30 mg 04/17/18 22:00 04/19/18 10:24 Oxycontin - PO 30 mg BID MARINO Administration Pantoprazole Sodium 40 mg 04/15/18 23:30 04/19/18 10:25 Protonix - PO 40 mg BID MARINO Administration Phenol/Menthol 1 spray 04/15/18 14:19 04/15/18 15:48 Chloraseptic - MM 1 spray Q6H PRN Administration SORE THROAT Polyethylene Glycol 17 gm 04/13/18 19:15 04/19/18 10:24 Miralax (For Daily Use) - PO 17 gm BID MARINO Administration ASSESSMENT/PLAN: Patient is a 52 year old male with a past medical history of HIV. He is s/p back surgery with Dr. Feliz. He will be discharged home with follow up tomorrow with surgery. Ortho: s/p L2-L5 laminectomies, L4-L5 PLIF, L2-S1 PISf on 04/09/2018 Pain better controlled, ambulated yesterday with PT, denies any dizziness or other discomfort. Patient to see at office tomorrow. ID: HIV, continue home meds discharge home. Visit type - Emergency Visit Emergency Visit: Yes ED Registration Date: 04/09/18 Care time: The patient presented to the Emergency Department on the above date and was hospitalized for further evaluation of their emergent condition. - New Patient This patient is new to me today: Yes Date on this admission: 04/19/18 - Critical Care Critical Care patient: No - Discharge Referral Referred to [facility] Med P.C.: No
[2018-04-19 20:14] VITALS: BP 119/70; PULSE 91; TEMP 98.8
== END 2018-04-19 20:45 | disposition home or self-care (01) | DRG 303 ==
LOC: JSAMEDAYSX 04-09 08:51 → JICU 04-09 21:57 → J4W 04-14 13:51
PROVIDERS: ADMIT Orthopaedic Surgery Orthopaedic Surgery of the Spine; ATTEND Nurse Practitioner Family
PROC: 0SG1071 Fusion of 2 or more Lumbar Vertebral Joints with Autologous Tissue Substitute, Posterior Approach, Posterior Column, Open Approach (ICD-10-PCS; 2018-04-09)
PROC: 0SG10AJ Fusion of 2 or more Lumbar Vertebral Joints with Interbody Fusion Device, Posterior Approach, Anterior Column, Open Approach (ICD-10-PCS; 2018-04-09)
PROC: 0WP Anatomical Regions, General, Removal (ICD-10-PCS; 2018-04-09)
PROC: 0QB00ZZ Excision of Lumbar Vertebra, Open Approach (ICD-10-PCS; principal; 2018-04-09 11:00)
DX: M40.295 Other kyphosis, thoracolumbar region (principal); Z21 Asymptomatic human immunodeficiency virus [HIV] infection status; R06.6 Hiccough; E78.5 Hyperlipidemia, unspecified; M54.16 Radiculopathy, lumbar region; E83.39 Other disorders of phosphorus metabolism
CPT/HCPCS: 36415; 76000-TC-FY; 80048; 80053; 83735; 84100; 85025; 85027; 86850; 86900; 86901; 88300-TC; 90670; 93005; 93010; 94010; 94760; 97116-GP; 97162-GP; J0131; J0475; J1644; J7030